=== PATIENT | male | born 1960 | race Caucasian/White ===

== ENCOUNTER 2023-11-20 14:38 | Emergency (ER) | payer MEDICARE, MEDICAID, SELFPAY ==
--- NOTE | ~2023-11-20 | US_ITS ---
EXAMINATION: US ABDOMEN LIMITED CLINICAL INFORMATION: RUQ pain. COMPARISON: None available. TECHNIQUE: Real-time imaging of the right upper quadrant abdominal viscera. FINDINGS: Evaluation is limited due to patient body habitus. PANCREAS: Pancreatic body and head are normal. The distal pancreatic tail is obscured by overlying bowel gas. LIVER: The liver is normal in size. The liver contour is normal. There is diffuse increased liver parenchymal echogenicity, consistent with hepatic steatosis. No focal hepatic lesion. There is no intrahepatic biliary duct dilatation seen. GALLBLADDER: The gallbladder is physiologically distended with a 1.9 x 0.6 x 1.3 cm gallstone. No gallbladder wall thickening or pericholecystic fluid. Intermittent right upper quadrant tenderness without evidence of sonographic Kim sign per windows server support technician documentation. Questionable adenomyomatosis on a single image (series #1 image 38/53). COMMON BILE DUCT: Not visualized. RIGHT KIDNEY: No hydronephrosis. No renal calculi or focal parenchymal lesions. The kidney measures 12.3 cm in maximum dimension. FREE FLUID: None. US/US abdomen limited IMPRESSION: 1. Cholelithiasis without additional sonographic findings of acute cholecystitis. 2. Hepatic steatosis. 3. Common bile duct not visualized.
--- NOTE | 2023-11-20 14:41 | ED.ABDPAIN ---
HPI - Abdominal Pain General Chief Complaint: Abdominal Pain Stated Complaint: Abd pain Time Seen by Provider: 11/20/23 17:28 Source: patient and family Mode of arrival: ambulatory Limitations: no limitations History of Present Illness ED Provider: Jeniffer HPI narrative: Patient is a 63-year-old male presenting to the emergency department with complaint of right flank/right upper quadrant pain which began on Friday and worsened today. 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 Symptoms began after he came home from work on Friday. Denies any nausea, vomiting, diarrhea. Denies fevers. Denies any hematuria, urgency, dysuria. Denies history of prior abdominal surgeries. States he has PCP but has not been to see them in many years. Reports father has history of kidney stones. MD elicited complaint: abdominal pain and flank pain Onset (ago): day(s) Pain Consistency: colicky Location: RUQ and R flank Severity: moderate Quality: sharp Exacerbating factors: movement Relieving factors: rest Associated symptoms: denies other symptoms Related Data Previous Rx's ?Medication ?Instructions ?Recorded cyclobenzaprine 5 mg tablet 5 mg PO TID PRN muscle spasm #10 11/20/23 tabs lidocaine 5 % topical patch 1 patch topical DAILY #15 ea 11/20/23 Allergies Allergy/AdvReac Type Severity Reaction Status Date / Time No Known Allergies Allergy Verified 11/20/23 14:44 Review of Systems Review of Systems As per HPI. Yes all other systems are reviewed and are negative Constitutional: Reports as per HPI [facility] Past Medical History Medical History (Updated 11/20/23 @ 18:12 by Myrna Swift NP) No known health problems Social History Social History Smoked in Last 30 Days: No Use of substances other than those prescribed or required for medical reasons: No Advance Directives: No Advance Directives Information Provided: No Physical Exam ED Vital Signs: Vital Signs - 24 hr 11/20/23 14:42 Temperature 97 F Pulse Rate 71 Respiratory Rate 20 Blood Pressure 145/105 H Pulse Oximetry 98 Oxygen Delivery Method Room Air BMI result Body Mass Index 49.0 Vital signs have been reviewed and appear to be correct. Blood pressure elevated. Heart rate normal. Respiratory rate normal. Temperature normal. Oxygen saturation normal. Const General: cooperative and no acute distress Nutritional Appearance: obese Orientation/consciousness: oriented to person, oriented to place, oriented to time and patient oriented x3 Limitations: no limitations HENMT Head: Yes normocephalic and Yes atraumatic Ears: external ears normal General nose exam: Normal external nose present Face and sinus: Yes face symmetric Mouth: oropharynx normal and moist mucous membranes Throat: Yes uvula midline Eyes Pupils: Equal, round and reactive pupils present Neck Neck: Yes normal visual inspection and Yes supple Resp Effort & Inspection: normal respiratory effort and able to speak in complete sentences Auscultation: clear to auscultation bilaterally Cardio Rate: regular rate Rhythm: regular rhythm Heart sounds: S1 normal heart sound present and S2 normal heart sound present GI Palpation (GI): Soft to palpation, Tenderness to palpation present (GI) in the RUQ (mild); Kim's sign negative, no guarding and No Rebound tenderness present Auscultation: normoactive bowel sounds General: Yes no CVA tenderness Back/Spine/Pelvis Back: no CVA tenderness Thoracic/Lumbar Spine: thoracic and lumbar spine normal to inspection, thoraco-lumbar ROM normal, pain with thoraco-lumbar ROM, paraspinal muscle tenderness on the right in the mid thoracic, No thoracic spinal tenderness and No lumbar spinal tenderness Skin General skin exam: elasticity normal and turgor normal Neuro General: oriented to person, oriented to place, oriented to time, patient oriented x3, moves all extremities, no focal motor deficits and CN's II-XI intact bilaterally Cranial nerves: Yes Equal, round and reactive pupils present Cognition (Neuro): normal cognition Extrem General: Yes full ROM, Yes no pedal edema and Yes no calf tenderness Psych Mental Status: mental status grossly normal Affect: normal affect Thought process: Normal thought process present Course Course Course Narrative: This is a Rapid Medical Exam performed in triage by Elsa Harrison PA-C. Full HPI, ROS and PE to be performed by primary ED provider. 63 year-old M w/ PMHx presenting to the ED c/o right side pain twinges x this morning w/assoc abdominal bloating. Admits sx started on Friday but subsided. denies urinary sx, N/V/C, CP. denies pain worsening w/eating PE: abdomen soft +RUQ ttp Plan: Labs, UA ordered Medical Decision Making Medical Decision Making MDM Narrative: Patient is a 63-year-old male presenting to the emergency department with complaint of right flank/right upper quadrant pain which began on Friday and worsened today. On exam patient is awake, A+Ox3, BP elevated, VS otherwise WNL, afebrile, normal neurological exam without focal deficits, physical exam findings as above. Given reported symptoms and physical exam findings, initial differential includes cholecystitis, choledocolithiasis, muscle strain, UTI/pyelonephitis, renal/ureteral calculi. Labs notable for no leukocytosis, normal renal function, normal Tbili and transaminases. Urinalysis is without blood or evidence of infection. Ultrasound notable for cholelithiasis without evidence of cholecystitis, hepatic steatosis, CBD not visualized. My interpretation is in agreement with the radiologist's interpretation. Patient appears comfortable, is afebrile, no leukocytosis, suspicion for choledocolithiasis very low. Given that pain is primarily to RUQ, feel renal/ureteral calculi unlikely. Will treat for muscle strain with cyclobenzaprine and lidocaine patches. Feel patient is stable for discharge home. Discussed with patient that his blood pressure was elevated today. Instructed patient to schedule and appointment with his PCP to discuss his current symptoms as well as his blood pressure, will also refer to gastroenterology. Return precautions discussed at bedside. Patient verbalized understanding of and agreement with plan. Differential Diagnosis Differential Diagnoses: The differential diagnosis associated with the presentation includes As per [facility] Admission/Observation Consideration of admission/observation: Escalation of care including admission/observation considered Patient would have been admitted to the hospital had their work up had any findings where hospital admission was appropriate and their clinical presentation warranted hospital admission. Lab Data [facility] Lab Attestation statement: I reviewed the patient's lab results. As per [facility] 11/20/23 14:53 11/20/23 14:53 Labs: Lab Results 11/20/23 11/20/23 Range/Units 14:53 15:43 WBC 6.1 (4.8-10.8) X10*3/uL RBC 4.44 L (4.60-5.80) X10*6/uL Hgb 15.4 (14.0-18.0) g/dl Hct 42.6 (42.0-52.0) % MCV 95.9 (80.0-98.0) fL MCH 34.7 H (27.0-33.0) pg MCHC 36.2 H (31.0-36.0) g/dl RDW 13.1 (11.0-16.0) % Plt Count 177 (160-400) X10*3/uL MPV 9.7 (9.4-12.4) fL Immature Gran % (Auto) 0.2 (0.0-0.4) % Neut % (Auto) 55.9 (45-73) % Lymph % (Auto) 35.0 (20-40) % [place] % (Auto) 7.4 (2-11) % Eos % (Auto) 0.8 (0-4) % Baso % (Auto) 0.7 (0-2) % Lymph # (Auto) 2.1 (1.2-4.9) X10*3/uL [place] # (Auto) 0.5 (0.1-1.2) X10*3/uL Eos # (Auto) 0.1 (0.0-0.4) X10*3/uL Baso # (Auto) 0.0 (0.0-0.2) X10*3/uL Abs Immat Gran (auto) 0.01 (0.00-0.03) X10*3/uL Absolute Neuts (auto) 3.4 (2.0-8.3) x10*3/uL Absolute Nucleated RBC 0.000 (0.0-0.012) X10*3/uL Nucleated RBC % (auto) 0.0 (0.0-0.2) /100WBC Sodium 143 (135-145) mmol/L Potassium 3.8 (3.3-5.1) mmol/L Chloride 109 H (96-108) mmol/L Carbon Dioxide 21 L (22-29) mmol/L Anion Gap 17 (12-20) BUN 16 (9-16) mg/dL Creatinine 0.68 (0.5-1.4) mg/dL Estim Creat Clear Calc 171.8 Estimated GFR > 60 Random Glucose 96 (60-115) mg/dL Calcium 9.8 (8.4-10.2) mg/dL Magnesium 2.1 (1.6-2.6) mg/dL Total Bilirubin 1.0 (0.0-1.0) mg/dL Direct Bilirubin 0.3 (0.0-0.5) mg/dL AST 15 (5-37) U/L ALT 12 (0-40) U/L Alkaline Phosphatase 68 (39-117) U/L Total Protein 7.2 (6.5-8.0) g/dL Albumin 4.5 (3.5-5.0) g/dL Lipase 14 (8-78) U/L Urine Color Dark Yellow Urine Appearance Cloudy Urine pH 5.0 (5.0-9.0) Ur Specific [place] >= 1.030 H (1.005-1.025) Urine Protein Trace (Neg-Trace) mg/dL Urine Glucose (UA) Negative (Negative) mg/dL Urine Ketones Trace (Negative) mg/dL Urine Blood Negative (Negative) Urine Nitrite Negative (Negative) Ur Leukocyte Esterase Negative (Negative) Independent Interpretation I performed an independent interpretation of an: Ultrasound Interpretation: Ultrasound notable for cholelithiasis without evidence of cholecystitis, hepatic steatosis, CBD not visualized. Radiology Impression Discussion of test interpretation with radiology: I have reviewed the radiologist's reading. Radiologist Impression: US/US abdomen limited IMPRESSION: 1. Cholelithiasis without additional sonographic findings of acute cholecystitis. 2. Hepatic steatosis. 3. Common bile duct not visualized. Independent Historian Clinical information obtained from an independent historian. History obtained from or confirmed by: Spouse External Record Review External record reviewed: Inpatient record, Office record and Outpatient record Prescription Management I considered prescription management with: Other Discharge Plan Discharge Clinical Impression: Abdominal pain, acute, right upper quadrant, Muscular abdominal pain in right flank Patient Disposition: Home, Self-Care Instructions: Biliary Colic (ED), Muscle Strain (DC), Abdominal Pain (ED), Musculoskeletal Pain (ED) Additional Instructions: You have been evaluated in the emergency department today for abdominal/flank pain. Your evaluation did not show evidence of medical conditions requiring emergent intervention at this time. You are being treated with muscle relaxer as well as a topical lidocaine patch which you can wear for up to 12 hours in a 24 hour period. Do not apply heat directly over the patches. Your blood pressure was elevated in the emergency department today. Please schedule an appointment with your primary care physician to discuss the symptoms which brought you into the emergency department today as well as your blood pressure. Return to the emergency department if you experience worsening or uncontrolled pain, fevers 100.4? F or greater, recurrent vomiting, inability to tolerate food or fluids by mouth, bloody stools or vomit, black or tarry stools, or any other concerning symptoms. Prescriptions: New cyclobenzaprine 5 mg tablet 5 mg PO TID PRN (Reason: muscle spasm) Qty: 10 0RF lidocaine 5 % adhesive patch,medicated 1 patch topical DAILY Qty: 15 0RF Rx Instructions: leave on most painful area for up to 12 hrs Referrals: [facility] [place] [facility] [Provider Group] Print Language: Hungarian
[2023-11-20 14:42] VITALS: BP 145/105; PULSE 71; RESP 20; TEMP 36.1; O2SAT 98; BMI 49.0
[2023-11-20 14:57] LABS: MANUAL DIFF FLAG NO
[2023-11-20 14:58] LABS: Basophils Percent Auto 0.7 % (0-2); Eosinophils Absolute Auto 0.1 X10*3/uL (0.0-0.4); Eosinophils Percent Auto 0.8 % (0-4); Hematocrit 42.6 % (42.0-52.0); Hemoglobin 15.4 g/dl (14.0-18.0); Imm Gran Abs Auto 0.01 X10*3/uL (0.00-0.03); Imm Gran Pct Auto 0.2 % (0.0-0.4); Lymphocytes Absolute Auto 2.1 X10*3/uL (1.2-4.9); Mean Corpuscular HGB Conc 36.2 g/dl (31.0-36.0); Mean Corpuscular Hemoglobin 34.7 pg (27.0-33.0); Mean Corpuscular Volume 95.9 fL (80.0-98.0); Mean Platelet Volume 9.7 fL (9.4-12.4); Monocytes Absolute Auto 0.5 X10*3/uL (0.1-1.2); Monocytes Percent Auto 7.4 % (2-11); Neutrophils Absolute Auto 3.4 x10*3/uL (2.0-8.3); Neutrophils Percent Auto 55.9 % (45-73); Platelet Count 177 X10*3/uL (160-400); Red Blood Count 4.44 X10*6/uL (4.60-5.80); Red Cell Distribution Width 13.1 % (11.0-16.0); White Blood Count 6.1 X10*3/uL (4.8-10.8)
[2023-11-20 15:25] LABS: Alanine Aminotransferase 12 U/L (0-40); Albumin Level 4.5 g/dL (3.5-5.0); Alkaline Phosphatase 68 U/L (39-117); Anion Gap 17 (12-20); Aspartate Amino Transferase 15 U/L (5-37); Bilirubin Direct 0.3 mg/dL (0.0-0.5); Blood Urea Nitrogen 16 mg/dL (9-16); Calcium 9.8 mg/dL (8.4-10.2); Carbon Dioxide 21 mmol/L (22-29); Chloride 109 mmol/L (96-108); Creatinine Clr Calc Pharmacy 171.8; Estimated Glomerular Filt Rate > 60; Glucose Random 96 mg/dL (60-115); Lipase 14 U/L (8-78); Magnesium 2.1 mg/dL (1.6-2.6); Potassium 3.8 mmol/L (3.3-5.1); Sodium 143 mmol/L (135-145); Total Protein 7.2 g/dL (6.5-8.0)
[2023-11-20 15:53] LABS: Appearance Urine Cloudy; Color Urine Dark Yellow; Glucose Urine UA Negative (Negative); Leukocyte Esterase Urine Negative (Negative); Nitrite Urine Negative (Negative); Specific Gravity - Urine >= 1.030 (1.005-1.025); Urine Blood Negative (Negative); Urine Ketones Trace mg/dL (Negative); Urine Protein Trace mg/dL (Neg-Trace)
--- NOTE | 2023-11-20 17:12 | PC.NURSE ---
Pt ambulatory to ED 17, self presents with reports of right flank pain beginning today, denies accompanying symptoms. States I think I may have pulled something . A&Ox3 skin pwd respirations even unlabored. Labs drawn in , US completed. Awaiting MD barger and results, aware of plan of care.
--- OUTSIDE RECORDS SUMMARY | 2023-11-20 17:25 | XMS_ITS | Continuity of Care Document ---
Author Organization [facility] Address [address] [place] [id number]- Care Team Providers Care Production Roustabout Name Role Phone Helen Joaquin MD Primary Care Physician Encounter [facility] [place] Date(s): 06/27/22 - 07/27/22 [facility] [address] [place], [place] [address] Allergies, Adverse Reactions, Alerts No Known Allergies Medications clotrimazole 1% topical cream 1 applicator, Topically, 2 times a day, 0 Refills, Maintenance, 06/30/18 9:23:42 EST Start Date: 06/30/18 Status: Ordered Compression Stockings See Instructions, # 2 pair, Refills 2, Tot. Refills 2, Maintenance, Custom compression pantyhouse 30-40mm/Hg, 09/15/15 12:30:56, Compound Start Date: 09/15/15 Status: Ordered Compression Stockings See Instructions, # 2 each, Refills 2, Tot. Refills 2, Maintenance, Dx: 187.2 surgical, knee -66 mm Hg with elastic bands, 12/28/21 9:42:00 EDT, Compound Start Date: 12/28/21 Status: Ordered Compression Stockings See Instructions, # 2 each, Refills 2, Tot. Refills 2, Maintenance, Custom fit: surgical, calf length 30-40 mm Hg, 12/04/20 11:33:00 EDT, Compound Start Date: 12/04/20 Status: Ordered Compression Stockings See Instructions, # 2 each, Refills 2, Tot. Refills 2, Maintenance, Dx: Venous Insuffuciency with possibel ulcer 187.2 surgical, knee length 30-40 mm Hg with elastic bands, 02/12/22 10:05:00 EDT, Compound Start Date: 02/12/22 Status: Ordered juxtafit compression wraps Thigh high with foot and ankle piece juxtafit compression wraps Thigh high with foot and ankle piece, See Instructions, # 2 each, Refills 0, Tot. Refills 0, Maintenance, Dx: venous insufficiency, s/p GSV ablation, sclerotherapy, contactdermatitis from compression stocking,s obesity, ... Start Date: 10/30/16 Status: Ordered juxtafit compression wraps with foot and ankle piece juxtafit compression wraps with foot and ankle piece, See Instructions, # 2 each, Refills 0, Tot. Refills 0, Maintenance, dx: venous insufficiency, s/p GSV ablation, sclerotherapy, contact dermatitisfrom compression stockings, obesity, 08/15/16 8:16:... Start Date: 08/15/16 Status: Ordered juxtafit compression wraps with foot and ankle piece 30-40mm juxtafit compression wraps with foot and ankle piece 30-40mm, See Instructions, # 2 each, Refills 0, Tot. Refills 0, Maintenance, Dx: venous insufficiency, s/p GSV ablation, sclerotherapy, contact dermatitis from compression stocking,s obesity, ... Start Date: 11/20/16 Status: Ordered Problem List Condition Confirmation Course Effective Dates Status Health St atus Informant Varicose veins Confirmed Active Social History Social History Type Response Smoking Status Current every day ascencion reddy entered on: 09/28/14 Sex Patient Care team information Care Team Personnel Name: Helen Joaquin MD Position: S Primary Care Physician Member Role: PCP Address: Address: [address] [place] [address]- Care Team Related Persons Name: GITA GARCES Address: home [address] [place] [id number]
--- OUTSIDE RECORDS SUMMARY | 2023-11-20 17:25 | XMS_ITS | Continuity of Care Document ---
Author Organization [facility] Address [address] [place] [address]- Care Team Providers Care Chip Frier Name Role Phone Emani LAU, Helen Primary Care Physician [id number] Date(s): 02/11/22 - 04/18/22 [facility] [address] [place] [address]- Attending Physician: Nasim Fuller MD Admitting Physician: Nasim Fuller MD Referring Physician: Helen Joaquin MD Allergies, Adverse Reactions, Alerts No Known Allergies [...] Refills 2, Maintenance, Dx: 187.2 surgical, knee [id number] mm Hg with elastic bands, 12/28/21 9:42:00 [...] Team Personnel Name: Helen Joaquin MD Position: [facility] Primary Care Physician Member Role: PCP Address: Address: [address] [place] [address]- Care Team Related Persons Name: GITA GARCES Address: home [address] [place] [address]
--- OUTSIDE RECORDS SUMMARY | 2023-11-20 17:25 | XMS_ITS | Continuity of Care Document ---
Author Organization [facility] Address [address] [place] [address]- Care Team Providers Care Coal Sampler Name Role Phone Not on Staff, PCP Primary Care Physician Unavail able Encounter [facility] [place] Date(s): 01/02/23 - 02/01/23 [facility] [address] [place], [place] [address] Allergies, Adverse Reactions, Alerts No [...] Refills 2, Maintenance, Dx: 187.2 surgical, knee -60 mm Hg with elastic bands, 12/28/21 9:42:00 [...] bands, 02/12/22 10:05:00 EDT, Compound Start Date: 10/11/22 Status: Ordered juxtafit compression wraps Thigh high [...] Care team information Care Team Personnel Name: Not on Staff, PCP Position: S Physician (General Medicine) Member Role: PCP Care Team Related Persons Name: GITA GARCES Address: home [address] [place] [id number]
--- OUTSIDE RECORDS SUMMARY | 2023-11-20 17:25 | XMS_ITS | Continuity of Care Document ---
Author Organization [facility] Address [address] [place] [address]- Care Team Providers Care Seam Checker Name Role Phone Not on Staff, PCP Primary Care Physician Unavail able [place] [facility] [place] 01/24/23 [facility] [address] [place], [place] [address] Allergies, Adverse Reactions, Alerts No Known Allergies [...] Refills 2, Maintenance, Dx: 187.2 surgical, knee [id number] mm Hg with elastic bands, 12/28/21 9:42:00 [...] Related Persons Name: GITA GARCES Address: home [address] [place] [phone]
--- OUTSIDE RECORDS SUMMARY | 2023-11-20 17:25 | XMS_ITS | Continuity of Care Document ---
Author Organization [facility] Address [address] [place] [address]- Care Team Providers Care Flight Engineer Helicopter Name Role Phone Helen Joaquin MD Primary Care Physician [place] [facility] [id number] Date(s): 03/19/22 - 04/18/22 [facility] [address] [place] [address]- Attending Physician: Stacie Benavides Admitting Physician: AdmtrStacie Referring Physician: Admtr, Ar8 Allergies, Adverse Reactions, Alerts No Known Allergies [...] Refills 2, Maintenance, Dx: 187.2 surgical, knee [id number] mm Hg with elastic bands, 12/28/21 9:42:00 [...] day ascencion reddy entered on: 09/28/14 Sex Note * Martínez Crawley: PERFORM Event Display: Cardiovascular Results Scanned Authored Date: [id number] * Martínez Crawley: PERFORM Event Display: Cardiovascular Results Scanned Authored Date: [id number] Patient Care team information Care Team Personnel Name: Helen Joaquin MD Position: S Primary Care Physician Member Role: PCP Address: Address: [address] [place] [address]- Care Team Related Persons Name: GITA GARCES Address: home [address] [place] [address]
--- OUTSIDE RECORDS SUMMARY | 2023-11-20 17:25 | XMS_ITS | Continuity of Care Document ---
Author Organization [facility] Address [address] [place] [address]- Care Team Providers Care Market Risk Specialist Name Role Phone Helen Joaquin MD Primary Care Physician Encounter [facility] [place] Date(s): 02/18/22 - 03/20/22 [facility] [address] [place], [place] [address] Allergies, Adverse Reactions, Alerts No Known [...] Refills 2, Maintenance, Dx: 187.2 surgical, knee -30 mm Hg with elastic bands, 12/28/21 9:42:00 [...] Care Physician Member Role: PCP Address: Address: [address] [place] [address]- Care Team Related Persons Name: GITA GARCES Address: home [address] [place] [address]
--- OUTSIDE RECORDS SUMMARY | 2023-11-20 17:25 | XMS_ITS | Continuity of Care Document ---
Author Organization [facility] Address [address] [place] [address]- Care Team Providers Care Director Trading Name Role Phone Helen Joaquin MD Primary Care Physician Encounter [facility] [place] Date(s): 02/12/22 - 03/14/22 [facility] [address] [place], [place] [address] Allergies, Adverse Reactions, Alerts No Known Allergies [...] Refills 2, Maintenance, Dx: 187.2 surgical, knee [id number] mm Hg with elastic bands, 12/28/21 9:42:00 [...] Care Physician Member Role: PCP Address: Address: [address] [place] [address]- Care Team Related Persons Name: GITA GARCES Address: home [address] [place] [address]
--- OUTSIDE RECORDS SUMMARY | 2023-11-20 17:25 | XMS_ITS | Continuity of Care Document ---
Author Organization [facility] Address [address] [place] [address]- Care Team Providers Care Partner Cco Name Role Phone Helen Joaquin MD Primary Care Physician Encounter [facility] [place] Date(s): 12/04/20 - 01/03/21 [facility] [address] [place] [address]- Allergies, Adverse Reactions, Alerts Substance Reaction Severity Status NKA Active Medications clotrimazole 1% topical cream 1 applicator, Topically, 2 times a day, 0 Refills, Maintenance, 06/30/18 9:23:42 EST Start Date: 06/30/18 Status: Ordered Compression Stockings See Instructions, # 2 pair, Refills 2, Tot. Refills 2, Maintenance, Custom compression pantyhouse 30-40mm/Hg, 09/15/15 12:30:56, Compound Start Date: 09/15/15 Status: Ordered Compression Stockings See Instructions, # 2 pair, Refills 2, Tot. Refills 2, Maintenance, Dx: 187.2 surgical, knee [id number] mm Hg with elastic bands, 05/22/18 9:22:50 EST, Compound Start Date: 05/22/18 Status: Ordered Compression Stockings See Instructions, # 2 each, Refills 2, Tot. Refills 2, Maintenance, Custom fit: surgical, calf length 30-40 mm Hg, 12/04/20 11:33:00 EDT, Compound Start Date: 12/04/20 Status: Ordered juxtafit compression wraps Thigh high [...] Date: 11/20/16 Status: Ordered Problem List Condition Effective Dates Status Health Status Inform ant Varicose veins(Confirmed) Active Social History Social History Type Response Smoking Status Current every day ascencion reddy entered on: 09/28/14 Sex
--- NOTE | 2023-11-20 17:43 | PC.NURSE ---
Provider to bedside for primary eval.
[2023-11-20 18:32] VITALS: BP 145/105; PULSE 71; RESP 20; TEMP 36.1; O2SAT 98
== END 2023-11-20 18:32 | disposition home or self-care (01) ==
PROVIDERS: Physician Assistant; Emergency Provider Emergency Medicine Emergency Medical Services; PCP Internal Medicine
DX: S39.011A Strain of muscle, fascia and tendon of abdomen, initial encounter (principal); X58.XXXA Exposure to other specified factors, initial encounter; Y93.9 Activity, unspecified; Y92.9 Unspecified place or not applicable; Y99.9 Unspecified external cause status; R10.11 Right upper quadrant pain; K80.20 Calculus of gallbladder without cholecystitis without obstruction; K76.0 Fatty (change of) liver, not elsewhere classified
CPT/HCPCS: 36415; 76705; 80048; 80076; 81003; 83690; 83735; 85025; 99284

== ENCOUNTER 2024-09-03 19:22 | Emergency (ER) | payer MEDICARE, MEDICAID, SELFPAY ==
--- NOTE | ~2024-09-03 | CT_ITS ---
CLINICAL HISTORY: new onset L sided headache CT head without contrast Comparison: None Findings: No intra-axial mass, midline shift, hydrocephalus, or acute hemorrhage. Mild diffuse cerebral volume loss. Mild degree of patchy low-density within the periventricular and subcortical white matter. There is no sinus or mastoid fluid. The orbits are unremarkable. There is no acute fracture. IMPRESSION: 1. No acute intracranial findings. This document has been electronically signed by: Ebenezer Delacruz MD on 09/03/2024 20:45:03
[2024-09-03 19:25] VITALS: BP 149/77; PULSE 85; RESP 18; TEMP 36.3; O2SAT 97; BMI 44.9
--- NOTE | 2024-09-03 19:25 | ED.GENADULT ---
HPI - General Adult General Chief complaint: Headache Stated complaint: head pressure, light headed Time Seen by Provider: 09/03/24 23:22 Source: patient Mode of arrival: ambulatory Limitations: no limitations History of Present Illness ED Provider: HPI narrative: Patient's history of hypertension on losartan and dose increased from 25 to 50 mg last month because of high blood pressure patient is status post cholecystectomy 2 weeks ago comes here as having had pressure-like feeling for last few days also having lightheadedness which has increased especially on standing no nausea no vomiting patient does not drink enough water feels lightheaded especially on standing no chest pain no shortness of breath Related Data Previous Rx's ?Medication ?Instructions ?Recorded cyclobenzaprine 5 mg tablet 5 mg PO TID PRN muscle spasm #10 11/20/23 tabs lidocaine 5 % topical patch 1 patch topical DAILY #15 ea 11/20/23 Allergies Allergy/AdvReac Type Severity Reaction Status Date / Time No Known Allergies Allergy Verified 09/03/24 19:27 Review of Systems Review of Systems: Yes all other systems are reviewed and are negative PMFSH Past Medical History Medical History No known health problems Social History Social History Smoked in Last 30 Days: No Use of substances other than those prescribed or required for medical reasons: No Advance Directives: No Advance Directives Information Provided: Yes Do you have a plan to hurt others: No Plan Physical Exam ED Vital Signs: Vital Signs - 24 hr 09/03/24 19:25 09/03/24 22:57 09/04/24 00:02 Temperature 97.3 F 97.7 F Pulse Rate 85 72 70 Respiratory Rate 18 16 Blood Pressure 149/77 H 146/82 H 128/70 Pulse Oximetry 97 100 Oxygen Delivery Method Room Air Room Air 09/04/24 00:02 09/04/24 00:04 09/04/24 00:14 Temperature 97.6 F Pulse Rate 73 97 62 Respiratory Rate 16 Blood Pressure 116/68 118/62 128/71 Pulse Oximetry 98 Oxygen Delivery Method Room Air 09/04/24 00:31 Temperature 97.6 F Pulse Rate 62 Respiratory Rate 16 Blood Pressure 128/71 Pulse Oximetry 98 Oxygen Delivery Method Room Air BMI result Body Mass Index 44.9 Appearance: Alert. Oriented X3. No acute distress. Obese Eyes: Right eye normal pupils normal range of movement left prosthetic eye ENT: Pharynx normal. Oral Mucosa moist Neck: Normal inspection. Neck supple. CVS: Normal heart rate and rhythm. Pulses normal. Respiratory: No respiratory distress. Equal air entry bilateral, no wheezing/rales/rhonchi Abdomen: Soft and nontender. Bowel sounds are present, no mass palpable, no CVA tenderness Skin: Skin warm and dry. Normal skin color. Normal skin turgor. Extremities: No lower extremity edema. No calf tenderness Neuro: Oriented X 3. No motor deficit. No sensory deficit.No cerebellar signs , cranial nerves II-XII intact Course Course Course Narrative: This is an RME performed by Les Kidd CNP: Additional HPI, ROS, PE not included below will be deferred to primary provider. Patient is a 64-year-old male who presents emergency department for evaluation. He has been experiencing left-sided headache described as a pressure over the past few days without associated vision changes, nausea, vomiting, photophobia, phonophobia. Has not taken any medications for this. He admits to having chronic lightheadedness over the past year typically with position change/bending over, but over the past 3 weeks has states that it is a currently more frequently even while at rest. Plan: Serum labs, CT head Medical Decision Making Medical Decision Making [facility] Narrative: Patient with lightheadedness with normal orthostatics vague headache which is nonspecific CT scan of the head was negative for acute patient's blood pressure is on the lower side advised to decrease the dose of losartan 25 mg for now and follow up with PCP likely the cause of lightheadedness also patient advised to drink plenty of fluids Lab Data [facility] Lab Attestation statement: I reviewed the patient's lab results. 09/03/24 20:08 09/03/24 20:08 Labs: Lab Results 09/03/24 Range/Units 20:08 WBC 8.1 (4.8-10.8) X10*3/uL RBC 3.72 L (4.60-5.80) X10*6/uL Hgb 12.8 L (14.0-18.0) g/dl Hct 35.7 L (42.0-52.0) % MCV 96.0 (80.0-98.0) fL MCH 34.4 H (27.0-33.0) pg MCHC 35.9 (31.0-36.0) g/dl RDW 13.0 (11.0-16.0) % Plt Count 193 (160-400) X10*3/uL MPV 9.4 (9.4-12.4) fL Immature Gran % (Auto) 0.2 (0.0-0.4) % Neut % (Auto) 55.8 (45-73) % Lymph % (Auto) 32.0 (20-40) % Hardeman % (Auto) 6.4 (2-11) % Eos % (Auto) 4.7 H (0-4) % Baso % (Auto) 0.9 (0-2) % Lymph # (Auto) 2.6 (1.2-4.9) X10*3/uL Hardeman # (Auto) 0.5 (0.1-1.2) X10*3/uL Eos # (Auto) 0.4 (0.0-0.4) X10*3/uL Baso # (Auto) 0.1 (0.0-0.2) X10*3/uL Abs Immat Gran (auto) 0.02 (0.00-0.03) X10*3/uL Absolute Neuts (auto) 4.5 (2.0-8.3) x10*3/uL Absolute Nucleated RBC 0.000 (0.0-0.012) X10*3/uL Nucleated RBC % (auto) 0.0 (0.0-0.2) /100WBC Sodium 140 (135-145) mmol/L Potassium 5.1 D (3.3-5.1) mmol/L Chloride 104 (96-108) mmol/L Carbon Dioxide 27 (22-29) mmol/L Anion Gap 14 (12-20) BUN 15 (9-16) mg/dL Creatinine 0.72 (0.5-1.4) mg/dL Estim Creat Clear Calc 152.1 Estimated GFR > 60 Random Glucose 99 (60-115) mg/dL Calcium 9.1 D (8.4-10.2) mg/dL Total Bilirubin 0.6 (0.0-1.0) mg/dL AST 17 (5-37) U/L ALT 9 (0-40) U/L Alkaline Phosphatase 74 (39-117) U/L Total Protein 6.5 (6.5-8.0) g/dL Albumin 4.0 (3.5-5.0) g/dL Influenza Type A (PCR) NEGATIVE (Negative) Influenza Type B (PCR) NEGATIVE (Negative) RSV RNA Qual (PCR) NEGATIVE (Negative) SARS-CoV-2 RNA (RT-PCR) NEGATIVE (Negative) Independent Interpretation I performed an independent interpretation of an: CT Scan Interpretation: NAD Radiology Impression Discussion of test interpretation with radiology: I have reviewed the radiologist's reading. Discharge Plan Discharge Clinical Impression: Headache Patient Disposition: Home, Self-Care Instructions: Lightheadedness (ED), General Headache (ED) Additional Instructions: Your blood pressure today was 118/62 decrease the dose of losartan to 25 mg daily unless blood pressure is higher than 140/100 Drink plenty of fluids Check blood pressure twice a day before taking the medicine and before going to the bed and follow up with your PCP Prescriptions: No Action cyclobenzaprine 5 mg tablet 5 mg PO TID PRN (Reason: muscle spasm) Qty: 10 0RF lidocaine 5 % adhesive patch,medicated 1 patch topical DAILY Qty: 15 0RF Rx Instructions: leave on most painful area for up to 12 hrs Interventions: ED Discharge Assessment Last Done: 09/04/24 00:31 Discharge Date/Time: 09/04/24 00:31 Print Language: Korean
[2024-09-03 20:13] LABS: MANUAL DIFF FLAG NO
[2024-09-03 20:14] LABS: Basophils Absolute Auto 0.1 X10*3/uL (0.0-0.2); Basophils Percent Auto 0.9 % (0-2); Eosinophils Absolute Auto 0.4 X10*3/uL (0.0-0.4); Eosinophils Percent Auto 4.7 % (0-4); Hematocrit 35.7 % (42.0-52.0); Hemoglobin 12.8 g/dl (14.0-18.0); Imm Gran Abs Auto 0.02 X10*3/uL (0.00-0.03); Imm Gran Pct Auto 0.2 % (0.0-0.4); Lymphocytes Absolute Auto 2.6 X10*3/uL (1.2-4.9); Mean Corpuscular HGB Conc 35.9 g/dl (31.0-36.0); Mean Corpuscular Hemoglobin 34.4 pg (27.0-33.0); Mean Platelet Volume 9.4 fL (9.4-12.4); Monocytes Absolute Auto 0.5 X10*3/uL (0.1-1.2); Monocytes Percent Auto 6.4 % (2-11); Neutrophils Absolute Auto 4.5 x10*3/uL (2.0-8.3); Neutrophils Percent Auto 55.8 % (45-73); Platelet Count 193 X10*3/uL (160-400); Red Blood Count 3.72 X10*6/uL (4.60-5.80); White Blood Count 8.1 X10*3/uL (4.8-10.8)
[2024-09-03 20:31] LABS: Alanine Aminotransferase 9 U/L (0-40); Alkaline Phosphatase 74 U/L (39-117); Anion Gap 14 (12-20); Aspartate Amino Transferase 17 U/L (5-37); Bilirubin Total 0.6 mg/dL (0.0-1.0); Blood Urea Nitrogen 15 mg/dL (9-16); Calcium 9.1 mg/dL (8.4-10.2); Carbon Dioxide 27 mmol/L (22-29); Chloride 104 mmol/L (96-108); Creatinine Clr Calc Pharmacy 152.1; Estimated Glomerular Filt Rate > 60; Glucose Random 99 mg/dL (60-115); Potassium 5.1 mmol/L (3.3-5.1); Sodium 140 mmol/L (135-145); Total Protein 6.5 g/dL (6.5-8.0)
[2024-09-03 20:50] LABS: Influenza A PCR NEGATIVE (Negative); Influenza B PCR NEGATIVE (Negative); Resp Syncy Virus RNA Qual PCR NEGATIVE (Negative); SARS COV2 PCR INHOUSE NEGATIVE (Negative)
[2024-09-03 22:57] VITALS: BP 146/82; PULSE 72; RESP 16; TEMP 36.5; O2SAT 100
--- OUTSIDE RECORDS SUMMARY | 2024-09-03 23:31 | XMS_ITS | Encounter Summary ---
Author Organization [facility] Address [address] [place] [address] Care Team Providers Care Director Career Name Role Phone Helen Joaquin MD Primary Care Provider Deb Cartagena MD Primary Care Provider [phone] Encounter Details Date Type Department Care Team Description 02/29/2016 Release of Information Medical Records [address] [place] [id number] Abstract, Provider Social History Tobacco Use Types Packs/Day Years Used Date Smoking Tobacco: Every Day Cigarettes 0.5 Smokeless Tobacco: Never Alcohol Use Standard Drinks/Week Comments Yes 0 (1 standard drink = 0.6 oz pur e alcohol) 1-2 BEERS/YEAR Sex Assigned at Date Recorded Not on file documented as of this encounter Plan of Treatment Not on file documented as of this encounter Visit Diagnoses Not on filedocumented in this encounter Care Teams Director Career Relationship Specialty Start Date End Date Helen Joaquin MD PCP - General Internal Medicine 02/09/15 11/20/23 Deb Bell MD [address] [place] [address] PCP - General Internal Medicine 11/21/23 documented as of this encounter
--- OUTSIDE RECORDS SUMMARY | 2024-09-03 23:31 | XMS_ITS | Encounter Summary ---
Author Organization [facility] Address [address] [place] [address] Care Team Providers Care Supervisor Of Research Name Role Phone Guy Hinkle MD Primary Care Provider [phone] [facility], Pcp Primary Care Provider Deep Rose MD Primary Care Provider Irene Uzair Guardado MD Primary Care Provider Unavail Helen Mcginnis MD Primary Care Provider Deb Cartagena MD Primary Care Provider [phone] Reason for Visit * Reason Comments TEST RESULTS Encounter Details Date Type Department Care Team Description 04/04/2000 Telephone Medical [address] [place] [id number] Gyu Hinkle MD [address] [place] [address] TEST RESULTS Social History Tobacco Use Types Packs/Day Years Used Date Smoking Tobacco: Never Assessed Sex Assigned at Date Recorded Not on file documented as of this encounter Miscellaneous Notes * Telephone Encounter - 04/04/2000 10:15 AM ESTCALL RECEIVED. Contact: [id number] [phone] TEST RESULTS TYPE OF TEST:upper GI DATE:04.02.00 FACILITY:[facility] IS THE DOCTOR HERE TODAY?: YES CAN THE MESSAGE WAIT UNTIL THE DOCTOR RETURNS?: NO PATIENT WOULD LIKE A CALL BACK TODAY/THANKS documented in this encounter Plan of Treatment Not on file documented as of this encounter Visit Diagnoses Not on filedocumented in this encounter Care Teams Supervisor Of Research Relationship Specialty Start Date End Date Guy Hinkle MD [address] [place] [address] PCP - General 05/05/1991 11/19/11 [facility], [address] [address] PCP - General Internal Medicine 11/20/11 12/09/11 Deep Ross MD [address] [place], [place] [id number] PCP - General Internal Medicine 12/10/11 05/04/14 Uzair Guerrero MD [address] [place] [address] PCP - General Internal Medicine 07/04/14 02/08/15 Helen Joaquin MD [address] [place] [id number] PCP - General Internal Medicine 02/09/15 11/20/23 Deb Bell MD [address] [place], [place] [id number] PCP - General Internal Medicine 11/21/23 documented as of this encounter
--- OUTSIDE RECORDS SUMMARY | 2024-09-03 23:31 | XMS_ITS | Clinical Summary ---
Author Organization [address] [place] [address] [place] [phone] Phone Care Team Providers Care Junior Qa Analyst Name Role Phone Deb Bell MD Primary Care Provider [phone] Allergies No known active allergies Medications losartan (COZAAR) 50 mg tablet Take 1 tablet (50 mg total) by mouth 1 (one) time each day. 90 tablet 1 08/06/19 25 Active acetaminophen (TYLENOL) 500 mg tablet Take 2 tablets (1,000 mg total) by mouth every 6 (six) hours if needed for mild pain. 60 tablet 08/21/19 25 Active oxyCODONE (ROXICODONE) 5 mg immediate release tablet Take 1 tablet (5 mg total) by mouth every 6 (six) hours if needed for severe pain. Max Daily Amount: 20 mg 10 tablet 08/21/19 25 Active tolnaftate (TINACTIN) 1 % powder Apply 1 applicator topically. 02/03/20 24 025 Discontinued miconazole nitrate 2 % aerosol,spray Apply 1 applicator topically 1 (one) time each day. 02/03/20 24 025 Discontinued lidocaine-ment hol (Elemar) 5-6 % kit Apply topically. 025 Discontinued semaglutide (Wegovy) 0.25 mg/0.5 mL injection penIndications :Class 3 severe obesity due to excess calories with serious comorbidity and body mass index (BMI) of 45.0 to 49.9 in adult (CMS/HCC V24, CMS/HCC V28) Inject 0.25 mg under the skin every 7 (seven) days. 4 mL 1 04/29/20 24 025 Discontinued losartan (COZAAR) 25 mg tablet Take 2 tablets (50 mg total) by mouth 1 (one) time each day. 180 tablet 07/24/19 025 Discontinued(Do se adjustment) losartan (COZAAR) 50 mg tablet Take 1 tablet (50 mg total) by mouth 1 (one) time each day. 025 Discontinued(Re order) Active Problems Problem Noted Date Diagnosed Date Porcelain gallbladder 07/20/2024 Varicose veins of lower extremities with inflamm ation 03/18/2024 Biliary colic 12/12/2023 Calculus of gallbladder with out cholecystitis without obstruction 12/12/2023 Fatty liver 12/12/2023 Primary hypertension 12/12/2023 Smoking 10/21/2014 Lymphedema 11/26/2007 Trigger finger 11/16/2007 Varicose veins of lower extremities with inflamm ation 09/28/2005 Morbid obesity (CMS/HCC V24, CMS/HCC V28) 2005 Encounters Date Type Department Care Team Description 09/02/2024 2:30 PM EDT Office Visit Vascular Surgery - [place] [address] [place] [address] Erma Miller PA Lymphedema (Primary Dx); Varicose veins of leg with swelling, bilateral 08/20/2024 1:00 PM EDT - 08/20/2024 3:[address] [facility] [place] [address] [place] [phone] Andrzej Booker, DO LAPAROSCOPIC CHOLECYSTECTOMY [[id number] (CPT??)] 08/20/2024 12:15 PM EDT Anesthesia Event [facility] [place] [address] [place] [phone] Hudson Case MD 08/20/2024 11:17 AM EDT - 08/20/2024 3:38 PM EDT Hospital Encounter [facility] [place] [address] [place] [phone] Andrzej Booker, DO Porcelain gallbladder Discharge Disposition: Home or Self Care 07/22/2024 10:48 AM EDT - 07/22/2024 11:59 PM EDT Hospital Encounter CT Scan - [place] [address] [place] [address] Right flank pain Discharge Disposition: Home or Self Care 07/20/2024 3:45 PM EDT Office Visit General Surgery - [place] [address] [place] [phone] Andrzej Booker, DO Right flank pain (Primary Dx); Porcelain gallbladder 06/17/2024 2:45 PM EST Ancillary Procedure [facility] [address] [place] [address] Varicose veins of leg with swelling, bilateral from Last 3 Months Immunizations Name Administration Dates Next Due Tdap Tetanus diptheria acell ular pertussis (Boostrix; Adacel) 7yo and older 10/12/2008 Surgical History Surgery Date Site/Laterality Comments OTHER SURGICAL HISTORY PROCEDURE: UT STRABISMUS PREVIOUS EYE X INVOLVE EO MUSC COLONOSCOPY W/ BIOPSIES 09/04/2001 PROCEDURE: UT COLONOSCOPY W/BIOPSY SINGLE/MULTIPLE; COMMENT: 5 mm hyperplastic polyp COLONOSCOPY W/ BIOPSIES 01/17/2012 PROCEDURE: UT COLONOSCOPY W/BIOPSY SINGLE/MULTIPLE; COMMENT: 5 mm polyp at 25 cm: hyperplastic. COLONOSCOPY EYE SURGERY Medical History Medical History Date Comments Varicose veins of lower extr emities with inflammation 09/28/2005 DX:Varicose veins of lower extremities with inflammation Smoking 10/21/2014 DX:Smoking Hypertension Varicose veins of both lower extremities, unspecified whether complicated Family History Relation Name Status Comments Brother Alive Father Alive htn Mother Alive valvular heart diseace/pacemaker Social History Tobacco Use Types Packs/Day Years Used Date Smoking Tobacco: Former Cigarettes 0.5 4.3 S tarted: 2020 Smokeless Tobacco: Never Tobacco Cessation:Counseling Given: Not Answered Alcohol Use Standard Drinks/Week Comments Not Currently 0 (1 standard drink = 0.6 oz pur e alcohol) Interpersonal Safety Answer Date Record ed Physical Abuse 08/20/2024 Verbal Abuse 08/20/2024 Sex and Gender Information Value Date Recorded Sex Assigned at Male 08/13/2024 9:27 AM EDT Legal Sex Male 11:34 PM EST Gender Identity Male 08/13/2024 9:27 AM EDT Sexual Orientation Straight 08/13/2024 9: 27 AM EDT Obstetrics History Last Filed Vital Signs Vital Sign Reading Time Taken Comments Blood Pressure 125/82 09/02/2024 2:17 PM EDT Pulse 82 09/02/2024 2:17 PM EDT Temperature 36.7 ??C (98.1 ??F) 08/20/2024 2:22 PM ED T Respiratory Rate 14 08/20/2024 2:22 PM EDT Oxygen Saturation 100% 08/20/2024 2:22 PM EDT Inhaled Oxygen Concentration - - Weight 150 kg (331 lb) 09/02/2024 2:17 PM EDT Height 182.9 cm (6') 09/02/2024 2:17 PM EDT Body Mass Index 44.89 09/02/2024 2:17 PM EDT Plan of Treatment Upcoming Encounters Date Type Department Care Team (Late st Contact Info) Description 09/06/2024 3:15 PM EDT Office Visit General Surgery [facility] [address] [facility] [address] [place] [phone] Andrzej Booker DO 175 [facility] [address] [place] [address] 09/07/2024 11:00 AM EDT Office Visit Adult Medicine [facility] [place] [address] [place] [address] Deb Bell MD [address] [place] [address] 09/22/2024 1:15 PM EDT Office Visit Orthopedic Surgery [facility] 250 [address] [facility] [address] [place] [phone] Milad Vasquez DPM [address] [address] 03/11/2025 3:00 PM EST Office Visit Vascular Surgery [facility] 300 [facility] [address] [place] [phone] Erma Miller PA [address] [address] Health Maintenance Due Date Last Done Comments Hepatitis A Vaccines (1 of 2 - Risk 2-dose series) 1977 Pneumococcal Vaccine: 50+ Years (1 of 2 - PCV) 1977 Zoster Vaccines (1 of 2) 2008 Hepatitis B Vaccines (1 of 3 - Risk 3-dose series) 2018 RSV Immunization Adult Patients (1 - Risk 60-74 years 1-dose series) 2018 DTaP,Tdap,and Td Vaccines (2 - Td or Tdap) 10/12/2018 10/12/2008 Abdominal Aortic Aneurysm (AAA) Screen 02/13/2023 Colorectal Cancer Screening: Colonoscopy 02/13/2023 01/17/2012 Medicare Annual Wellness Visit 02/13/2023 Social Influencers of Health Screening 02/13/2023 COVID-19 Vaccine (3 - 2023-2 5 season) 2024 09/09/2020, 08/19/2020 Depression Screening 12/11/2024 12/12/2023 Influenza Vaccine (Season Ended) 2025 Hypertension/CHF/CAD Annual BMP Blood Test 07/21/2025 07/21/2024, 09/08/2014 Falls Risk Assessment 08/20/2025 08/20/2024 , 12/12/2023 Cholesterol Screening (Lipid Panel) 12/22/2028 12/23/2023, 12/23/2023 Hepatitis C Screening Completed 12/23/2023 HIB Vaccines Aged Out No longer eligi ble based on patient's age to complete this topic HPV Vaccines Aged Out No longer eligi ble based on patient's age to complete this topic IPV Vaccines Aged Out No longer eligi ble based on patient's age to complete this topic MMR Vaccines Aged Out No longer eligi ble based on patient's age to complete this topic Meningococcal ACWY Vaccine Aged Out N o longer eligible based on patient's age to complete this topic Meningococcal B Vaccine Aged Out No l onger eligible based on patient's age to complete this topic RSV Immunization Patients Under 20 months Aged Out No longer eligible b ased on patient's age to complete this topic Varicella Vaccines Aged Out No longer eligible based on patient's age to complete this topic Procedures Procedure Name Priority Date/Time Associated Diagnosis Comments OXYGEN THERAPY, ADULT Routine 08/20/2024 1:24 PM EDT OXYGEN THERAPY, ADULT Routine 08/20/2024 1:24 PM EDT TISSUE EXAM Routine 08/20/2024 1:00 PM EDT Porcelain gallbladder TH AN ENDOTRACHEAL(NO CHARGE) Routine 08/20/2024 12:37 PM EDT UT LAPAROSCOPY SURGICAL CHOLECYSTECTOMY 08/20/2024 12:15 PM EDT Porcelain gallbladder Chronic cholecystitis Special Needs Laparoscopic Cholecystectomy ? Open -- Asking 120 minutes. ECG 12-LEAD Routine 08/13/2024 9:47 AM EDT Porcelain gallbladder CT ABDOMEN PELVIS W CONTRAST Routine 07/22/2024 11:13 AM EDT Right flank pain BASIC METABOLIC PANEL Routine 07/21/2024 8:48 AM EDT Right flank pain VAS US DUPLEX LOWER EXT VENOUS INSUFFICIENCY BILATERAL Routine 06/17/2024 3:24 PM EST Varicose veins of leg with swelling, bilateral HEPATITIS C SCREENING Routine 12/23/2023 LIPID PANEL Routine 12/23/2023 DEPRESSION SCREENING Routine 12/12/2023 FALLS RISK ASSESSMENT Routine 12/12/2023 from Last 3 Months or Most Recently Relevant to Health Maintenance Results * Tissue exam (08/20/2024 1:00 PM EDT) Final Diagnosis Gallbladder, cholecystectomy: - Chronic cholecystitis with extensive epithelial denudation, mural fibrosis, degenerative changes and focal calcification. - Cholelithiasis. 08/23/2024 12:04 PM EDT [facility] Gross Description A. Gallbladder, : Labeled gallbladder . Received in formalin is a 7.2 x 2.8 x 2.6 cm previously disrupted gallbladder, including attached cystic duct with a diameter of 0.2 cm at the margin. No periductal lymph node is identified. The lumen contains scant yellow-brown bile. There is a 2.2 cm yellow-brown cholelith lodged within the neck. The mucosa is pink-white to brown and denuded. The mucosa in the neck is adherent to the cholelith 0.2. The wall (muscularis) thickness measures up to 0.2 cm. The wall of the fundus is moderately calcified. The serosa is inked amberly, and the adventitial margin is inked green. Thermodynamics Teacher sections are submitted as follows: 1, gallbladder (body and neck), duct margin (inked red), and cross section adjacent to duct margin (inked blue), five pieces. 2-5, additional full-thickness sections (cassettes 3-5 following decalcification), three pieces each ALINE 08/23/2024 12:04 PM EDT [facility] Disclaimer Unless otherwise specified, all tissue is 10% NB formalin fixed and paraffin embedded. 08/23/2024 12:04 PM EDT [facility] Tissue Gallbladder structure / Unknown 08/20/2024 1:00 PM EDT 08/20/2024 1:50 PM EDT us Andrzej Booker DO LAB PATHOLOGY ORDERABLES Final Result [facility] [address] [place] [address], * TH AN ENDOTRACHEAL(NO CHARGE) (08/20/2024 12:37 PM EDT) Narrative Hudson Case MD - 08/20/2024 12:37 PM EDT Hudson Case MD ? 08/20/2024 12:39 PM General Information and Staff Patient location during procedure: OR Anesthesiologist: Hudson Case MD Performed: anesthesiologist Performed by: Hudson Case MD Authorized by: Hudson Case MD ?? Intubation Airway not difficult Urgency: elective Final Airway Details Successful airway: ETT Cuffed: yes Successful intubation technique: direct laryngoscopy Endotracheal tube insertion site: oral Blade: Zeferino Blade size: #4 ETT size (mm): 7.0 Cormack-Lehane Classification: grade I - full view of glottis Placement verified by: chest auscultation and capnometry Cuff volume (mL): 10 Measured from: lips ETT to lips (cm): 24 Number of attempts at approach: 1 Ventilation between attempts: none Number of other approaches attempted: 0Final airway type: endotracheal airway Indications and Patient Condition Indications for airway management: anesthesia Spontaneous ventilation: present Sedation level: Yes Preoxygenated: yes Soft Tissue Damage: No Dentition Unchanged: Yes Patient position: neutral Mask difficulty assessment: 0 - not attempted Start Time: 08/20/2024 12:21 PMStop Time: 08/20/2024 12:21 PM us Hudson Case MD ANESTHESIA ORDERABLES Final Re sult * ECG 12 lead (08/13/2024 9:47 AM EDT) Ventricular Rate ECG 72 BPM GEMUSE Atrial Rate 72 BPM GEMUSE P-R Interval 148 ms GEMUSE QRS Duration 106 ms GEMUSE Q-T Interval 374 ms GEMUSE QTc 409 ms GEMUSE P Wave Butler 46 degrees GEMUSE R Butler 6 degrees GEMUSE T Butler 65 degrees GEMUSE ECG Interpretation Normal sinus rhythm Incomplete right bundle branch block Borderline ECG No previous ECGs available Confirmed by DEL WILLIAM ([id number]) on 08/14/2024 10:20:39 AM GEMUSE 08/13/2024 9:47 AM EDT 08/14/2024 10:20 AM EDT us Andrzej Booker DO ECG ORDERABLES Final Result GEMUSE * CT Abdomen Pelvis w Contrast (07/22/2024 11:13 AM EDT) Anatomical Region Laterality Modality Body Computed Tomogra phy 07/22/2024 1:55 PM EDT Impressions 07/22/2024 2:06 PM EDT Impression: 1. ??No acute intra-abdominal or intrapelvic process 2. Porcelain gallbladder. ??Recommend consultation with gastrointestinal or surgery for further evaluation -------- FINAL REPORT -------- Dictated By: Sagar Kohler Dictated Date: 07/22/2024 13:55 ET Assigned Physician: Sagar Kohler Reviewed and Electronically Signed By: Sagar Kohler Signed Date: 07/22/2024 14:06 ET Workstation ID: [id number] Transcribed By: Self Edit Transcribed Date: 07/22/2024 13:56 ET Narrative 07/22/2024 2:[address] abdomen and pelvis with intravenous contrast HISTORY:Right flank pain COMPARISON:CT abdomen and pelvis from 11/30/2013 Technique: Multiple contiguous axial images of the abdomen and pelvis are obtained with the administration of 100 cc of ISOVUE 370 intravenous contrast. Images were reformatted in coronal and sagittal planes. ??Radiation dose is26.93 mGy Findings: Mediastinum: The apex of the heart is within normal limits for size, no pericardial effusion. Lung bases: Lung bases are clear. Upper Abdomen: The liver, pancreas and spleen are within normal limits. ??Calcification along the gallbladder wall. : A 1.0 cm right adrenal nodule is present stable from 2013. ??The left adrenal gland is within normal limits. ??The kidneys are unremarkable. ??Bladder is decompressed. Lower GI: The bowel is without obstruction, or inflammation. There is no free air or free fluid. The appendix and terminal ileum are within normal limits. ??Subcentimeter lymph nodes within the abdomen and pelvis. Vascular: The abdominal aorta is within normal limits. MSK: Moderate degenerative changes of the bilateral hips. ??Fat-containing bilateral inguinal hernias. Procedure Note Sagar Kohler MD - 07/22/2024 CT abdomen and pelvis with intravenous contrast HISTORY:Right flank pain COMPARISON:CT abdomen and pelvis from 11/30/2013 Technique: Multiple contiguous axial images of the abdomen and pelvis areobtained with the administration of 100 cc of ISOVUE 370 intravenouscontrast. Images were reformatted in coronal and sagittal planes.Radiation dose is26.93 mGy Findings: Mediastinum: The apex of the heart is within normal limits for size, nopericardial effusion. Lung bases: Lung bases are clear. Upper Abdomen: The liver, pancreas and spleen are within normal limits.Calcification along the gallbladder wall. : A 1.0 cm right adrenal nodule is present stable from 2014. The leftadrenal gland is within normal limits. The kidneys are unremarkable.Bladder is decompressed. Lower GI: The bowel is without obstruction, or inflammation. There is nofree air or free fluid. The appendix and terminal ileum are within normallimits. Subcentimeter lymph nodes within the abdomen and pelvis. Vascular: The abdominal aorta is within normal limits. MSK: Moderate degenerative changes of the bilateral hips. Fat- containingbilateral inguinal hernias. IMPRESSION: Impression: 1. No acute intra-abdominal or intrapelvic process 2. Porcelain gallbladder. Recommend consultation with gastrointestinal orsurgery for further evaluation -------- FINAL REPORT -------- Dictated By: Sagar Kohler Dictated Date: 07/22/2024 13:55 ET Assigned Physician: Sagar Kohler Reviewed and Electronically Signed By: Sagar Kohler Signed Date: 07/22/2024 14:06 ET Workstation ID: [id number] Transcribed By: Self Edit Transcribed Date: 07/22/2024 13:56 ET Andrzej Booker DO IMG CT PROCEDURES Final Result * (ABNORMAL) Basic metabolic panel (07/21/2024 8:48 AM EDT) Sodium 135 133 - 145 mmol/L LAB CHEMISTRY METHOD 07/21/2024 10:59 AM EDT [facility] Potassium 4.8 3.5 - 5.5 mmol/L LAB CHEMISTRY METHOD 07/21/2024 10:59 AM EDT [facility] Chloride 101 96 - 110 mmol/L LAB CHEMISTRY METHOD 07/21/2024 10:59 AM EDT [facility] CO2 29 21 - 32 mmol/L LAB CHEMISTRY METHOD [facility]24 [facility] Anion Gap 5 3 - 11 LAB CHEMISTRY METHOD 07/21/2024 10:59 AM [facility] Glucose 119(H) 70 - 100 mg/dL LAB CHEMISTRY METHOD 07/21/2024 10:59 AM [facility] BUN 16 5 - 25 mg/dL LAB CHEMISTRY METHOD 07/21/2024 10:59 AM [facility] Creatinine 0.85 0.70 - 1.30 mg/dL LAB CHEMISTRY METHOD 07/21/2024 10:59 AM [facility] eGFR 96 >=60 mL/min/1. 73m2 LAB CHEMISTRY METHOD 07/21/2024 10:59 AM [facility] Comment:Calculation based on the??Chronic Kidney Disease Epidemiology Collaboration (CKD-EPI) equation refit??without adjustment for race. BUN/Creatinine Ratio 18.8 LAB CHEMISTRY METHOD 07/21/2024 10:59 AM [facility] Calcium 9.7 8.5 - 10.5 mg/dL LAB CHEMISTRY METHOD 07/21/2024 10:59 AM [facility] Blood Venous blood specimen / Unknown Venipuncture / Unknown 07/21/2024 8:48 AM EDT 07/21/2024 8:48 AM EDT us Andrzej Booker DO LAB BLOOD ORDERABLES Final Res ult [facility] [address] [place] [address], * Vascular US duplex lower extremity venous insufficiency bilateral (06/17/2024 3:24 PM EST) Left GSDC emmanuel 0.37 cm CV VAS LAB Left GSPC emmanuel 0.38 cm CV VAS LAB Left GSPT emmanuel 0.35 cm CV VAS LAB Left SFJ Diameter 0.95 cm CV VAS LAB Right GSDC emmanuel 0.39 cm CV VAS LAB Right GSPC emmanuel 0.40 cm CV VAS LAB Right GSPT emmanuel 0.25 cm CV VAS LAB Right pop reflux 2,811 ms CV VAS LAB Right SFJ Diameter 0.76 cm CV VAS LAB Right GSPC reflux 3,117 ms CV VAS LAB Left SFJ Reflux Time 2,578 ms CV VAS LAB Anatomical Region Laterality Modality Vascular, Abdomen Ultrasound Narrative 06/17/2024 6:46 PM EST Right: 1. ??The right lower extremity veins are compressible and there is no evidence of DVT in the right lower extremity venous system. 2. ??Previous history of venous procedure on both legs, most likely ablation of the GSV done partially, could not visualize GSV from mid thigh to right knee level. ??The GSV has clinically significant reflux of 3.1 seconds at the right upper calf. 3. The SSV could not be visualized. 4. There is refluxing varcose vein branch from right GSV noted. ??The proximal thigh branch has clinically significant reflux of >2.7 seconds, mid thigh branch which is very tortuous has clinically significant reflux of > 3.23 seconds, another mid thigh branch has clinically significant reflux of > 3.06 seconds, right upper calf branch has clinically significant reflux of > 3.29 seconds and right upper calf medial branch has clinically significant reflux of > 3.28 seconds. Left: 1. ??The left lower extremity veins are compressible and there is no evidence of DVT in the left lower extremity venous system. 2. The GSV is only partially visible, most likely previous ablation of the GSV from the mid thigh to knee level. ??The GSV has clinically significant reflux of 2.5 seconds at the left saphenofemoral femoral junction. 3. The SSV could not be visualized. 4. There is refluxing varcose vein branch from left GSV with clinically significant reflux of > 2.7 seconds at the anterior thigh, clinically significant reflux of > 3.01 seconds at the mid thigh and clinically significant reflux of 3.1 seconds > at the upper calf. Right Lower Venous The common femoral, femoral, popliteal, greater and lesser saphenous veins were interrogated, demonstrating normal compressibility. Doppler signals were phasic and spontaneous. Right Venous Insufficiency Duplex The exam was performed with the patient in reverse Trendelenburg. Left Lower Venous The common femoral, femoral, popliteal, greater and lesser saphenous veins were interrogated, demonstrating normal compressibility. Doppler signals were phasic and spontaneous. Left Venous Insufficiency Duplex The exam was performed with the patient in reverse trendelenburg. [employer] Details A rose scale, color and doppler analysis ultrasound was performed. During the study longitudinal and transverse views were obtained. Pulsed wave doppler was performed. Study was technically difficult due to: body habitus. Result [facility] Erma REESE CV VASCULAR PROCEDURES Final R esult * Hepatitis C Screening (12/23/2023) [facility] Hepatitis C Screening abstracted Result [facility] Provider HEALTH MAINTENANCE Final Result * (ABNORMAL) Lipid panel (12/23/2023) [facility] LDL/HDL Ratio 3 0 - 4 Triglycerides 101 0 - 150 mg/dL Cholesterol 177 0 - 200 mg/dL HDL 53 >=40 mg/dL LDL Cholesterol 104(A) 0 - 100 mg/dL Blood Venous blood specimen / Unknown Result [facility] Provider LAB BLOOD ORDERABLES Tiffanie l Result * Falls Risk Assessment (12/12/2023) [facility] Falls Risk Assessment abstracted Result [facility] Provider HEALTH MAINTENANCE Final Result * Depression Screening (12/12/2023) [facility] Depression Screening abstracted Result [facility] HEALTH MAINTENANCE Final Result from Last 3 Months or Most Recently Relevant to Health Maintenance Insurance [employer] [place] [employer] Advance Directives * Full Code - Default (Latest Code Status on File) Date Activated Date Inactivated Comments 08/20/2024 11:24 AM 08/20/2024 5:39 PM This is ord er is used when code status has not been discussed with the patient, or code status is otherwise unknown/unconfirmed To update the patient's code status, place a code status order. Do not modify or discontinue any currently active code status orders. Care Teams Junior Qa Analyst Relationship Specialty Start Date End Date Deb Bell MD [address] [place] [address] [place] [address] PCP - General 11/21/23
--- OUTSIDE RECORDS SUMMARY | 2024-09-03 23:31 | XMS_ITS | Encounter Summary ---
Author Organization [facility] Address [address] [place] [address] Care Team Providers Care Glass Furnace Tender Name Role Phone Helen Joaquin MD Primary Care Provider Deb Cartagena MD Primary Care Provider [phone] Encounter Details Date Type Department Care Team Description 03/31/2015 Dial Brusher Report Medical Records [address] [place] [address] Alireza Mcdonald Social History Tobacco Use Types Packs/Day Years [...] on filedocumented in this encounter Care Teams Glass Furnace Tender Relationship Specialty Start Date End Date Helen Joaquin MD PCP - General Internal Medicine 02/09/15 11/20/23 Deb Bell MD [address] [place] [address] PCP - General Internal Medicine 11/21/23 documented as of this encounter
--- OUTSIDE RECORDS SUMMARY | 2024-09-03 23:31 | XMS_ITS | Encounter Summary ---
Author Organization [facility] Address [address] [place] [address] Care Team Providers Care Center Director Name Role Phone Helen Joaquin MD Primary Care Provider Deb Cartagena MD Primary Care Provider [phone] Encounter Details Date Type Department Care Team Description 08/01/2016 Battery Filler Report Medical Records [address] [place] [id number] Teagan Dejesus Social History Tobacco Use Types Packs/Day Years [...] on filedocumented in this encounter Care Teams Center Director Relationship Specialty Start Date End Date Helen Joaquin MD PCP - General Internal Medicine 02/09/15 11/20/23 Deb Bell MD [address] [place] [address] PCP - General Internal Medicine 11/21/23 documented as of this encounter
--- OUTSIDE RECORDS SUMMARY | 2024-09-03 23:31 | XMS_ITS | Encounter Summary ---
Author Organization [facility] Address [address] [place] [address] Care Team Providers Care Pearl Peller Name Role Phone Guy Hinkle MD Primary Care Provider [phone] [facility], Pcp Primary Care Provider Deep Rose MD Primary Care Provider Irene Uzair Guardado MD Primary Care Provider Unavail Helen Mcginnis MD Primary Care Provider Deb Cartagena MD Primary Care Provider [phone] Encounter Details Date Type Department Care Team Description 06/16/2001 Telephone Gastroenterology - [address] [address] Jd Maguire MD Social History Tobacco Use Types Packs/Day Years Used Date Smoking Tobacco: Never Assessed Sex Assigned at Date Recorded Not on file documented as of this encounter Plan of Treatment Not on file documented as of this encounter Visit Diagnoses Not on filedocumented in this encounter Care Teams Pearl Peller Relationship Specialty Start Date End Date Guy Hinkle MD [address] [place] [address] PCP - General 05/05/1991 11/19/11 [facility], Pcp [address] [place] [phone] PCP - General Internal Medicine 11/20/11 12/09/11 Deep Ross MD [address] [place] [address] PCP - General Internal Medicine 12/10/11 05/04/14 Uzair Guerrero MD [address] [place] [address] PCP - General Internal Medicine 07/04/14 02/08/15 Helen Joaquin MD [address] [place] [address] PCP - General Internal Medicine 02/09/15 11/20/23 Deb Bell MD [address] [place] [address] [phone] PCP - General Internal Medicine 11/21/23 documented as of this encounter
--- OUTSIDE RECORDS SUMMARY | 2024-09-03 23:31 | XMS_ITS | Encounter Summary ---
Author Organization [facility] Address [address] [place] [address] Care Team Providers Care Swimming Instructor Name Role Phone Guy Hinkle MD Primary Care Provider [phone] [facility], Pcp Primary Care Provider Deep Rose MD Primary Care Provider Uzair Rahman MD Primary Care Provider Unavail Helen Mcginnis MD Primary Care Provider Deb Cartagena MD Primary Care Provider [phone] Encounter Details Date Type Department Care Team Description 10/09/2005 Hospital Medical Records [address] [place] [address] Ara Crocker MD [address] [facility] [address] [place] [address] Social History Tobacco Use Types Packs/Day Years Used Date Smoking Tobacco: Former Cigarettes 0.5 42 Smokeless Tobacco: Never Alcohol Use Standard Drinks/Week Comments Yes 0 (1 standard drink = 0.6 oz pur e alcohol) 1-2 BEERS/YEAR Sex Assigned at Date Recorded Not on file documented as of this encounter Plan of Treatment Not on file documented as of this encounter Visit Diagnoses Not on filedocumented in this encounter Care Teams Swimming Instructor Relationship Specialty Start Date End Date Guy Hinkle MD [address] [place] [id number] PCP - General 05/05/1991 11/19/11 [facility], Pcp [address] [place] [address] PCP - General Internal Medicine 11/20/11 12/09/11 Deep Ross MD [address] [place] [address] PCP - General Internal Medicine 12/10/11 05/04/14 Uzair Guerrero MD [address] [place] [address] PCP - General Internal Medicine 07/04/14 02/08/15 Helen Joaquin MD [address] [place] [address] PCP - General Internal Medicine 02/09/15 11/20/23 Deb Bell MD [address] [place] [address] PCP - General Internal Medicine 11/21/23 documented as of this encounter
--- OUTSIDE RECORDS SUMMARY | 2024-09-03 23:31 | XMS_ITS | Clinical Summary ---
Author Organization [facility] Address [address] [place] [address] Care Team Providers Care Spine Specialist Name Role Phone Deb Bell MD Primary Care Provider [phone] Medications Medication Sig Dispensed Refills Start Date End Date Status Lidocaine & Menthol 5 & 6 % Kit Apply topically. 0 Active Miconazole Nitrate 2 % Aerosol Apply 1 Applicator topically daily. 100 g 3 02/03/2024 Active tolnaftate (Lotrimin AF) 1 % powder Apply 1 Applicator topically 2 times daily for 30 days. Both feet 45 g 3 02/03/2024 Active losartan (COZAAR) 25 MG tablet Take 2 Tablets by mouth daily. 180 Tablet 0 02/24/2024 Active Active Problems Problem Noted Date Calculus of gallbladder without cholecys titis without obstruction 12/12/2023 Primary hypertension 12/12/2023 Fatty liver 12/12/2023 Biliary colic 12/12/2023 Smoking 10/21/2014 Lymphedema 11/26/2007 Trigger finger 11/16/2007 Varicose veins of lower extremities with inflammation 09/28/2005 Morbid obesity 09/23/2005 Resolved Problems Problem Noted Date Resolved Date Varicose veins of lower extremities with inflamm ation 09/23/2005 09/23/2005 Immunizations Name Administration Dates Next Due COVID-19 (Pfizer) 09/09/2020,08/19/2020 Tdap 10/12/2008 Family History Relation Name Status Comments Brother Alive Father Alive htn Mother Alive valvular heart diseace/pacemaker Social History Tobacco Use Types Packs/Day Years Used Date Smoking Tobacco: Former Cigarettes 0.5 42 Smokeless Tobacco: Never Tobacco Cessation:Counseling Given: Not Answered Alcohol Use Standard Drinks/Week Comments Yes 0 (1 standard drink = 0.6 oz pur e alcohol) 1-2 BEERS/YEAR Sex Assigned at Date Recorded Not on file Last Filed Vital Signs Vital Sign Reading Time Taken Comments Blood Pressure 146/74 02/24/2024 4:19 PM EDT Pulse 66 02/24/2024 4:19 PM EDT Temperature 36.6 ??C (97.8 ??F) 02/24/2024 4:19 PM ED T Respiratory Rate 18 02/24/2024 4:19 PM EDT Oxygen Saturation 96% 12/12/2023 8:53 AM EDT Inhaled Oxygen Concentration - - Weight 156.9 kg (346 lb) 02/24/2024 4:19 PM EDT Height 182.9 cm (6') 02/24/2024 4:19 PM EDT Body Mass Index 46.93 02/24/2024 4:19 PM EDT Plan of Treatment Health Maintenance Due Date Last Done Comments DTAP/TDAP/TD (2 - Td or Tdap) 10/12/2018 10/12/2008 COLON CANCER SCREENING 01/16/2022 2, 01/17/2012, 09/04/2001, Additional history exists PNEUMOCOCCAL VACCINE (1 - PCV) 2023 Covid-19 Vaccine (3 - 2022- season) 2024 09/09/2020, 08/19/2020 BMI CHECK/ADVISE 05/05/2024 02/24/2024, 03/2024, 01/13/2024, Additional history exists DEPRESSION SCREEN 12/11/2024 12/12/2023 (Completed) FALL RISK ASSESSMENT 12/11/2024 12/12/2023 (Complete d) SHINGLES VACCINE (1 of 2) 12/11/2024 Po stponed from 2008 (Other Circumstances) INFLUENZA (Season Ended) 2025 CHOLESTEROL SCREENING 12/22/2028 12/23/2023 , 01/13/2013, 12/05/2007, Additional history exists HEPATITIS C SCREENING Completed 12/23/2023 Care Teams Spine Specialist Relationship Specialty Start Date End Date Deb Bell MD [address] [place] [address] PCP - General Internal Medicine 11/21/23
--- OUTSIDE RECORDS SUMMARY | 2024-09-03 23:31 | XMS_ITS | Encounter Summary ---
Author Organization [facility] Address [id number] [place] [phone] Care Team Providers Care Pit Slagman Name Role Phone Deb Bell MD Primary Care Provider [phone] Reason for Visit * Reason Comments Follow-up Encounter Details Date Type Department Care Team (Late st Contact Info) Description 09/02/2024 2:30 PM EDT Office Visit Vascular Surgery - [place] [address] [place] [phone] Erma Miller PA [address] [place] [address] Lymphedema (Primary Dx); Varicose veins of leg with swelling, bilateral Social History Tobacco Use Types Packs/Day Years Used Date Smoking Tobacco: Former Cigarettes 0.5 4.3 S tarted: 2020 Smokeless Tobacco: Never Alcohol Use Standard Drinks/Week Comments Not Currently [...] Orientation Straight 08/13/2024 9: 27 AM EDT documented as of this encounter Last Filed Vital Signs Vital Sign Reading Time Taken Comments Blood Pressure 125/82 09/02/2024 2:17 PM EDT Pulse 82 09/02/2024 2:17 PM EDT Temperature - - Respiratory Rate - - Oxygen Saturation - - Inhaled Oxygen Concentration - - Weight 150 kg (331 lb) 09/02/2024 2:17 PM EDT Height 182.9 cm (6') 09/02/2024 2:17 PM EDT Body Mass Index 44.89 09/02/2024 2:17 PM EDT documented in this encounter Progress Notes * Maisha CalderaWERO - 09/02/2024 2:30 PM EDT Lower Extremity Venous Duplex for Venous Insufficiency - 06/17/2024 Right: 1. The right lower extremity veins are compressible and there is no evidence of DVT in the right lower extremity venous system. 2. Previous history of venous procedure on both legs, most likely ablation of the GSV done partially, could not visualize GSV from mid thigh to right knee level. The GSV has clinically significant reflux of 3.1 seconds at the right upper calf. 3. The SSV could not be visualized. 4. There is refluxing varcose vein branch from right GSV noted. The proximal thigh branch has clinically significant reflux of >2.7 seconds, mid thigh branch which is very tortuous has clinically significant reflux of > 3.23 seconds, another mid thigh branch has clinically significant reflux of > 3.06 seconds, right upper calf branch has clinically significant reflux of > 3.29 secondsand right upper calf medial branch has clinically significant reflux of > 3.28 seconds. Left: 1. The left lower extremity veins are compressible and there is no evidence of DVT in the left lower extremity venous system. 2. The GSV is only partially visible, most likely previous ablation of the GSV from the mid thigh to knee level. The GSV has clinically significant reflux of 2.5 [...] 3.1 seconds > at the upper calf. Result History Order Result History Report Procedure Details A rose scale, color and doppler analysis ultrasound was performed. During the study longitudinal and transverse views were obtained. Pulsed wave doppler was performed. Study was technically difficultdue to: body habitus. Lower Venous Extremity Findings Right Lower Venous The common femoral, femoral, [...] performed with the patient in reverse trendelenburg. Right Lower Venous Measurements Vein Diam Reflux Time GSV Junction 0.76 cm GSV Thigh Prox 0.25 cm GSV Below Knee Prox 0.4 cm 3,117 ms GSV Below Knee Dist 0.39 cm Pop 2,811 ms Left Lower Venous Measurements Vein Diam Reflux Time GSV Junction 0.95 cm 2,578 ms GSV Thigh Prox 0.35 cm GSV Below Knee Prox 0.38 cm GSV Below Knee Dist 0.37 cm * MARY ANN Fatima - 09/02/2024 2:30 PM EDT PATIENT: [place] ENCOUNTER: 09/02/2024 EMRN: [id number] : 1960 PCP: Deb Bell MD CHIEF COMPLAINT: Follow-up HPI: This 64 y.o. male with history of lymphedema, morbid obesity, HTN, varicose veins presents for follow up of lymphedema, chronic venous insufficiency. Patient reports he was diagnosed with lymphedema in 1994. He reports varicose veins present on calves and thighs but denies any associated pain. Bothlegs are equal. He reports constant swelling of his legs. He has been wearing some type of compression for 30 years. He currently uses compression wraps. He denies any history of venous ulcers. No history of DVT. Denies claudication, rest pain in toes, ulcers or gangrene. He previously had venous injections 3-4 years ago at [facility] but cannot provide further details. He also mentions that they may have attempted an ablation previously but the procedure was unable to be completed. He quit smoking 3 years ago. He follows with Dr. Vasquez for podiatry. Since patient's last visit, he reports no change in his symptoms. He continues to use compression wraps daily. He does not want to have his legs examined today and declined removal of compression wraps, socks and shoes. He denies development of venous ulcers. He had venous reflux studies performed,see findings below. 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 EYE SURGERY OTHER SURGICAL HISTORY PROCEDURE: NC STRABISMUS PREVIOUS EYE X INVOLVE EO [facility] MEDICATIONS: Outpatient Medications Marked as Taking for the 09/02/24 encounter (Office Visit) with MARY ANN Fatima Medication Sig Dispense Refill losartan (COZAAR) 50 mg tablet Take 1 tablet (50 mg total) by mouth 1 (one) time each day. 90 tablet 1 ALLERGIES: No Known Allergies SOCIAL HISTORY: Social History Tobacco Use Smoking status: Former Current packs/day: 0.50 Average packs/day: 0.5 packs/day for 4.3 years (2.2 ttl pk-yrs) Types: Cigarettes Start date: 2020 Smokeless tobacco: Never Substance Use Topics Alcohol use: Not Currently Drug use: No FAMILY HISTORY: No family history on file. ROS: GENERAL: No malaise, significant weight loss or fever NECK: No lumps, goiter, pain or significant neck swelling RESPIRATORY: No cough, wheezing or shortness of breath CARDIAC: No chest pain or palpitations GI: No abdominal discomfort MUSCULOSKELETAL: SEE HPI SKIN: No lesions, rash or itching NEURO: No persistent headache, syncope, seizures, weakness or numbness VASCULAR: SEE HPI PHYSICAL EXAM: Vitals: 09/02/24 1417 BP: 125/82 BP Location: Left arm Patient Position: Sitting Pulse: 82 Weight: 150 kg (331 lb) Height: 1.829 m (72 ) General: Alert and oriented x 3, no acute distress, well-nourished HEENT: Normocephalic atraumatic Neck: No JVD Chest: Respiratory effort normal Cardiac: Regular rate rhythm Abdomen: Soft, nontender, nondistended, no widened aortic pulse Extremities: -Right upper extremity: 2+ radial artery pulses palpable. -Left upper extremity: 2+ radial artery pulses palpable. -Right lower extremity: Unable to examine as patient declined removal of compression wraps, soaks and shoes. -Left lower extremity: Unable to examine as patient declined removal of compression wraps, soaks and shoes. Integumentary: No wounds Neuro: Grossly intact DIAGNOSTIC TESTING: Lower Extremity Venous Duplex for Venous Insufficiency - 06/17/2024 Right: 1. The right lower extremity veins are compressible and there is no evidence of DVT in the right lower extremity venous system. 2. Previous history of venous procedure on both legs, most likely ablation of the GSV done partially, could not visualize GSV from mid thigh to right knee level. The GSV has clinically significant reflux of 3.1 seconds at the right upper calf. 3. The SSV could not be visualized. 4. There is refluxing varcose vein branch from right GSV noted. The proximal thigh branch has clinically significant reflux of >2.7 seconds, mid thigh branch which is very tortuous has clinically significant reflux of > 3.23 seconds, another mid thigh branch has clinically significant reflux of > 3.06 seconds, right upper calf branch has clinically significant reflux of > 3.29 secondsand right upper calf medial branch has clinically significant reflux of > 3.28 seconds. Left: 1. The left lower extremity veins are compressible and there is no evidence of DVT in the left lower extremity venous system. 2. The GSV is only partially visible, most likely previous ablation of the GSV from the mid thigh to knee level. The GSV has clinically significant reflux of 2.5 [...] 3.1 seconds > at the upper calf. ASSESSMENT: 1. Lymphedema 2. Varicose veins of leg with swelling, bilateral PLAN: 64 y.o. male with history of lymphedema, bilateral varicose veins. Patient has been compliant with compression stockings for ~30 years. He is currently utilizing juxtalite compression wraps. We reviewed venous reflux study from 06/17/24 which revealed previously noted bilateral GSV procedure at the level of thigh to knee. There is clinically significant reflux of GSV at right upper calf and left saphenofemoral junction. Multiple refluxing varicose vein branches are noted. Patient declined examination of his legs today. Feel patient would be great candidate for intermittent pneumatic compression therapy. We discussed in the office today and he is interested. We will prescribe today. Plan for patient to follow up in 6 months to re-evaluate symptoms at that time. He will continue additional conservative management including leg elevation, daily exercise, weight loss, etc. He will contact the office with any questions or concerns. We discussed the natural pathophysiology of venous disease. I spent 31 minutes in an encounter withthis patient, including time spent with patient, chart review, reviewing diagnostic studies, and documentation. DIAGNOSIS ASSESSMENT [x] Lymphedema, not elsewhere classified [I89.0] Secondary to: [x] Venous Insufficiency [x] Obesity [] Surgical History [] Cancer Treatents [] Traumatic Injury LOCATION OF LYMPHEDEMA [x] Right Leg [x] Left Leg [] Pelvis/Genitals/Hips/Buttocks [x] Abdomen/Trunk [] Other: Date of onset, or duration: 11/06/2007 SEVERITY Symptoms and observations from physical exam Stage of Lymphedema: [x]Stage II [] Stage III []Other: [x] Hyperkeratosis [x] Hyperpigmentation [] Lymphorrhea (weeping) [] Papillomatosis (warts, nodules, papules) [] Elephantiasis [] Fibrosis [x] Pitting Edema [] Recurrent episode(s) of infection/cellulitis [x] Pain [] Venous leg ulcers and/or wounds [] Functional impairments to include limited range of motion or impaired mobility [] Other, explain: CONSERVATIVE TREATMENT (CT) Start Date: 09/15/15 Patient adhered to: Regular use of compression bandage system or compression garment(s)? [x] YES, compression garments (20-30mmHg) [] YES, compression bandage system Type: [] Multi-layer short stretch [] Velcro compression wrap(s) [] One-time use pre-packaged bandaging (i.e., Profore, Unna boot, Coban) [] Other: [] NO, explain: Regular exercise? [x] YES []NO If NO, explain: Limb elevation? [x] YES [] NO If NO, explain: At least 30 minutes daily of MLD or self-MLD? [x] YES [] NO Diet modifications? [x] YES [] NO Ongoing dietary concerns? [] YES [x] NO If YES, explain: Despite adhering to CT is the patient experiencing persistent symptoms? [x] YES [] NO ASSESSMENT FOR PNEUMATIC COMPRESSION DEVICE (PCD) Patient is recommended an: [] E0651 basic PCD [x] E0652 advanced PCD The following reasons demonstrate why a E0651 basic PCD is deemed not clinically appropriate to manage the patient's lymphedema (check all that apply): [x] Lymphedema is extending beyond the treatment area of an E0651 treatment sleeve []E0651 basic PCD exacerbated preexisting upper thigh, trunk/abdominal lymphedema [] Patient was unable to tolerate static pressure applied during the trial of the E0651 basic PCD due to a pre-existing condition or a condition being exacerbated: []Pain []Scarring []Contractures []Compromised skin integrity []Open ulcers/wounds Additional assessments or clinical observations: MEASUREMENTS: Unable to obtain in office on 09/02/24 as patient declined removal of compression wraps, socks and shoes. Choose at least two consecutive anatomical locations. Right Leg Measurements after completing CT Left Leg Measurements after completing CT Ankle cm Ankle cm Calf cm Calf cm Knee cm Knee cm Thigh cm Thigh cm Suprapubic (Hip) * cm Suprapubic (Hip)* cm Umbilicus (Waist)* cm Umbilicus (Waist)* cm *Include measurements if patient presents with lymphedema proximally into the genitals or trunk. Other history and clinical information: documented in this encounter Plan of Treatment Upcoming Encounters Date Type Department Care Team (Late st Contact Info) Description 09/06/2024 3:15 PM EDT Office Visit General Surgery [address] [place] [address] Andrzej Booker, DO 175 [facility] [address] [place] [address] 09/07/2024 11:00 AM EDT Office Visit Adult [facility] [address] [place] [address] Deb Bell MD [address] [place] [address] 09/22/2024 1:15 PM EDT Office Visit Orthopedic Surgery [facility] [address] [facility] [address] [place] [phone] Milad Vasquez DPM [address] [address] 03/11/2025 3:00 PM EST Office Visit Vascular Surgery [facility] 300 [facility] [address] [place] [address] Erma Miller PA 300 [facility] [address] [place] [address] documented as of this encounter Visit Diagnoses Diagnosis Lymphedema- Primary Other noninfectious lymphedema Varicose veins of leg with swelling, bilateral documented in this encounter Care Teams Pit Slagman Relationship Specialty Start Date End Date Deb Bell MD [address] [place] [address] PCP - General 11/21/23 documented as of this encounter
[2024-09-04 00:02] VITALS: BP 116/68; BP 128/70; PULSE 70; PULSE 73
[2024-09-04 00:04] VITALS: BP 118/62; PULSE 97
[2024-09-04 00:14] VITALS: BP 128/71; PULSE 62; RESP 16; TEMP 36.4; O2SAT 98
[2024-09-04 00:31] VITALS: BP 128/71; PULSE 62; RESP 16; TEMP 36.4; O2SAT 98
== END 2024-09-04 00:31 | disposition home or self-care (01) ==
PROVIDERS: Nurse Practitioner Family; Emergency Provider Internal Medicine; PCP Internal Medicine
DX: R51.9 Headache, unspecified (principal); I10 Essential (primary) hypertension; R42 Dizziness and giddiness; Z03.818 Encounter for observation for suspected exposure to other biological agents ruled out
CPT/HCPCS: 0241U; 70450; 80053; 85025; 99284

== ENCOUNTER → 2024-09-03 19:29 | Outpatient (BNV) | payer MEDICARE, MEDICAID, SELFPAY | PROVIDERS: PCP Internal Medicine; Visit Provider Radiology Diagnostic Radiology | DX: R51.9 Headache, unspecified (principal) | CPT/HCPCS: 70450 ==

== ENCOUNTER 2025-03-22 11:35 | Outpatient (AMB) | payer MEDICARE, SELFPAY ==
--- NOTE | 2025-03-22 11:39 | A.PHYSOV ---
Vital Signs 03/22/25 11:40 Height 6 ft Weight 311 lb BMI 42.2 Intake Visit Reasons: NPV Viviana Ref- spondylosis of lumbar joint Intake Note: Patient is a 64 year old male in office as new patient for low back pain. Allergies No Known Allergies Allergy (Verified 03/22/25 11:41) HPI Comments Details: History of Present Illness The patient is a 64-year-old male presenting with chronic low back pain and hip arthritis. The chronic low back pain began several years ago and has progressively worsened over time. The pain is exacerbated by prolonged standing and sitting, and it is relieved when the patient is in a reclined position. The patient reports that the pain does not radiate to the legs and is primarily located in the lower back. The hip arthritis was diagnosed following imaging studies that revealed degenerative changes. The patient experiences hip pain when standing for extended periods and has difficulty with mobility. Physical therapy was attempted but did not provide significant relief. He completed 6 weeks of physical therapy focusing on his lumbar spine and right hip without relief his symptoms. He finds that his symptoms limit his ability to perform his activities of daily living. X-ray lumbar spine and hips reported below. I reviewed the referring provider's no prior to consultation Pain Description - Onset: Several years ago, progressively worsening - Quality: Aching pain - Location: Lower back, no radiation to legs - Exacerbating factors: Prolonged standing and sitting - Relieving factors: Reclined position - Interference: Difficulty with prolonged standing and mobility [facility] Medical History (Updated 03/22/25 @ 12:41 by MARY ANN Walsh) No known health problems Surgical History History of cholecystectomy Social History Household Members: Spouse Alcohol intake: current Alcohol intake frequency: does not drink Alcohol type: beer and wine Patient Tobacco Use Status: Former Tobacco user Review of Systems Narrative Review of Systems - Musculoskeletal: Reports chronic low back pain, hip pain; denies radiation to legs - Neurological: Denies numbness or tingling in legs - Gastrointestinal: Reports history of gallstones, denies current abdominal pain Physical Exam Exam Exam: Physical Exam Lumbar Spine: Examination of his lumbar spine, there is no visible swelling or deformity. He is tender to the lower lumbar facets. He is otherwise nontender. Full range of motion of his lumbar spine. He does have an increase in Facet loading. Special Tests: Lhermittes sign was negative Heel Toe walk is normal Left straight leg raise: Negative Right straight leg raise: Negative Special tests Angelique test is negative Ganslen's test is negative SI Joint compression test negative Mana test negative Piriformis stretch is negative Lower Extremities: Limited range of motion of both hips in external rotation and abduction. There is some discomfort reproducible with motion. Neuro: Sensation: Intact to lower extremities bilaterally Strength L2 (Psoas): 5/5 on the left and 5/5 on the right. L3 (Quads): 5/5 on the left and 5/5 on the right. L4 (Ant tibialis): 5/5 on the left and 5/5 on the right. L5 (EHL) 5/5 on the left and 5/5 on the right. S1 (Gastroc): 5/5 on the left and 5/5 on the right. DTR L4: (Patellar) Left 0 Right 0 S1: (Achilles) Left 0 Right 0 Babinski Downgoing No pathologic clonus. No involuntary movement. Vital Signs: BMI result Body Mass Index 42.2 Assessment & Plan Assessment & Plan (1) Lumbar radiculopathy: Code(s): M54.16 - Radiculopathy, lumbar region Category: Medical (2) Osteoarthritis of right hip: Code(s): M16.11 - Unilateral primary osteoarthritis, right hip Category: Medical Qualifiers: Osteoarthritis type: primary Qualified Code(s): M16.11 - Unilateral primary osteoarthritis, right hip (3) Osteoarthritis of right knee: Code(s): M17.11 - Unilateral primary osteoarthritis, right knee Category: Medical Qualifiers: Osteoarthritis type: primary Qualified Code(s): M17.11 - Unilateral primary osteoarthritis, right knee Plan Pain Management - Affect: Pain impacts mobility and daily activities - Analgesia: No current pain medication, pain level reported as 4-5/10 - Adverse Effects: None reported - Activities of Daily Living: Difficulty standing for long periods, uses recliner for sleep - Aberrant Drug Related Behaviors: None reported Plan Patient was informed and verbally consented to the use of an ambient scribe for clinic note documentation during this visit. 1. Chronic Low Back Pain The plan for managing chronic low back pain includes anti-inflammatory medications as well as 6 weeks of physical therapy. At this point he has failed conservative treatment. I recommend MRI of his lumbar spine as we are considering epidural injection versus surgery. Follow-up post MRI. 2. Hip Arthritis For hip arthritis, the patient is advised to consider a cortisone injection to manage pain and inflammation, with the understanding that it may provide temporary relief for three to six months. Patient will hold off on injection at this time. He will continue his medications as prescribed. We discussed the benefits of proper nutrition and exercise to maintain a healthy body weight to improve longevity and function. We also discussed the benefits of proper lifting techniques, core strengthening and proper posture. Thank you for allowing me to participate in the care of your patient. Orders: Orders MR lumbar spine wo con Today M51.16 - Intervertebral disc disorders with radiculopathy, lumbar region Medications: New lorazepam (Ativan) 1 mg PO DAILY PRN 2 tabs 0RF anxiety MDD Take 1 tab Prior to MRI F40.240 - Claustrophobia Coding Level of Care Code New Pt Level 5 (58537) Diagnoses Lumbar radiculopathy M54.16 Primary osteoarthritis of right hip M16.11 Osteoarthritis type: primary Primary osteoarthritis of right knee M17.11 Osteoarthritis type: primary Time Spent (min) 50 Comment 50 minutes reviewing the medical record and imaging, seeing the patient and documenting.
[2025-03-22 11:40] VITALS: BMI 42.2
== END 2025-03-22 12:38 | disposition home or self-care (01) ==
LOC: HO.HPHYS 11:35
PROVIDERS: PCP Internal Medicine; Visit Provider Physician Assistant
DX: M54.16 Radiculopathy, lumbar region (principal); M16.11 Unilateral primary osteoarthritis, right hip; M17.11 Unilateral primary osteoarthritis, right knee
CPT/HCPCS: 99204

== ENCOUNTER → 2025-03-22 11:35 | Outpatient (BNVA) | payer MEDICARE, SELFPAY | PROVIDERS: PCP Internal Medicine; Visit Provider Physician Assistant | DX: M17.11 Unilateral primary osteoarthritis, right knee (principal); M16.11 Unilateral primary osteoarthritis, right hip; M54.16 Radiculopathy, lumbar region | CPT/HCPCS: 99202 ==

== ENCOUNTER 2025-04-14 10:00 | Outpatient (AMB) | payer MEDICARE, SELFPAY ==
[2025-04-14 10:11] VITALS: BMI 42.0
--- NOTE | 2025-04-14 10:11 | A.OFFVIS_ITS ---
Vital Signs 04/14/25 10:11 Height 6 ft Weight 310 lb BMI 42.0 Intake Visit Reasons: MRI followup Intake Note: Patient is a 64 year old male in office today for a follow up visit to discuss mri results no heat or ice no pain medication are taken Allergies No Known Allergies Allergy (Verified 03/22/25 11:41) HPI Comments Details: History of Present Illness The patient is a 65 year old male presenting for discussion of MRI results and management of chronic low back pain. He reports persistent low back pain, described as the same, and experiences occasional pain or soreness in his thighs, particularly with standing and walking. He has a pain level today of 7/10 and has failed conservative treatment. The patient's back condition is attributed to age-related wear and tear, with potential contributing factors including genetics, prior injuries, and weight gain. He takes blood pressure medication but is not on any blood thinners. An abdominal MRI has been ordered by another provider to evaluate side pain. Pain Description - Location: Low back. - Radiation: Occasional pain or soreness into the thighs. - Exacerbating factors: Standing or walking for a period of time. - Relieving factors: Feels much better when leaning forward, such as on a shop ping cart. Results - MRI Lumbar Spine: - Lower spine arthritis. - Degenerative disc disease. - At L3-L4, moderate to severe spinal canal stenosis with spinal cord compression and severe bilateral foraminal stenosis. - At another level, moderate to severe foraminal stenosis. - At a lower level, severe right and left foraminal stenosis. - Incidental finding of a benign-appearing, fluid-filled cyst in the left kidney. [facility] Medical History (Updated 04/14/25 @ 12:32 by MARY ANN Walsh) No known health problems Surgical History History of cholecystectomy Social History Household Members: Spouse Alcohol intake: current Alcohol intake frequency: does not drink Alcohol type: beer and wine Patient Tobacco Use Status: Former Tobacco user Review of Systems Narrative Review of Systems - Musculoskeletal: Reports chronic low back pain and occasional pain or soreness in the thighs. - Genitourinary/Abdominal: Reports pain in his side, for which an abdominal MRI has been ordered by another provider. - All other systems reviewed and are negative. Physical Exam Exam Exam: Physical Exam Lumbar Spine: Examination of his lumbar spine, there is no visible swelling or deformity. He is tender to lower lumbar facets. He is otherwise nontender. Full range of motion of his lumbar spine. Special Tests: Lhermittes sign was negative Heel Toe walk is normal Left straight leg raise: Negative Right straight leg raise: Negative Special tests Angelique test is negative Ganslen's test is negative SI Joint compression test negative Mana test negative Piriformis stretch is negative Lower Extremities: Limited range of motion of both hips in external rotation and abduction. Neuro: Sensation: Intact to lower extremities bilaterally Strength L2 (Psoas): 5/5 on the left and 5/5 on the right. L3 (Quads): 5/5 on the left and 5/5 on the right. L4 (Ant tibialis): 5/5 on the left and 5/5 on the right. L5 (EHL) 5/5 on the left and 5/5 on the right. S1 (Gastroc): 5/5 on the left and 5/5 on the right. DTR L4: (Patellar) Left 0 Right 0 S1: (Achilles) Left 0 Right 0 Babinski Downgoing No pathologic clonus. No involuntary movement. Vital Signs: BMI result Body Mass Index 42.0 Results Reviewed Results Reviewed: MRI lumbar spine 04/04/2025 impression: Multilevel lumbar spondylosis as above, most prominent at L2-3 and L3-4 and L4- 5. T2 hyperintense lesion of the left kidney statistically represents a cyst. Epidural lipomatosis. Assessment & Plan Assessment & Plan (1) Lumbar radiculopathy: Code(s): M54.16 - Radiculopathy, lumbar region Category: Medical (2) Spinal stenosis: Code(s): M48.00 - Spinal stenosis, site unspecified Category: Medical Qualifiers: Neurogenic claudication status: with neurogenic claudication Spinal region: lumbar Qualified Code(s): M48.062 - Spinal stenosis, lumbar region with neurogenic claudication Plan Pain Management - Analgesia: No current pain medications were discussed. The goal of the recommended injection is to achieve at least a 50% reduction in pain. - Activities of Daily Living: Pain is present with standing and walking. - He finds he can get more distance when grocery shopping by leaning on a cart. - Aberrant Drug Related Behaviors: No aberrant drug-related behaviors were noted or discussed. Plan Patient was informed and verbally consented to the use of an ambient scribe for clinic note documentation during this visit. 1. Lumbar Spinal Stenosis With Neurogenic Claudication The patient's MRI reveals multilevel degenerative changes, including moderate to severe spinal canal stenosis at L3-L4 and severe foraminal stenosis at multiple levels, which are causing compression of his spinal cord and nerves. These findings are consistent with his symptoms of back and leg pain, which are exacerbated by walking and relieved by leaning forward. Treatment options including physical therapy, director of home care hospice, and surgery were discussed. It was explained that while surgery is the only curative option, it is not without risks and is not recommended at this time. Patient may consider L5-S1 NETO, he will contact our office if you would like to proceed. The patient has elected to proceed with a lumbar epidural steroid injection to manage his symptoms. The procedure will be performed under X-ray guidance by Dr. Mcduffie, with the injection administered in the center of the back (interlaminar approach). An order will be placed, and authorization will be sought from his insurance. A follow-up is scheduled for three weeks post-procedure to evaluate its effectiveness. 2. Renal Cyst, Left An incidental finding on the lumbar MRI was a cyst on the left kidney. It was explained that the cyst appears benign and fluid-filled, not cancerous, and is not expected to affect kidney function. The patient was advised that no immediate action is likely needed, but he should discuss the finding with his [facility] care physician, Dr. Bell, to determine if any follow-up, such as a renal ultrasound, is warranted. The MRI report has been sent to his PCP. Discussion Notes I reviewed the patient's lumbar spine MRI results with him, explaining that he has arthritis causing [id number] spinal canal stenosis and severe foraminal stenosis at multiple levels. I educated him that this compression of the spinal cord and nerves is the cause of his back and leg symptoms, and that the condition is degenerative and progressive. We discussed treatment options, including conservative measures, surgery, and injections. I recommended a lumbar epidural steroid injection, explaining it is not a cure but could provide pain relief for an average of 3-6 months and is repeatable if effective. I reviewed the risks, including a small chance of infection, bleeding, or nerve damage, and explained the procedure would be done under x-ray guidance. I also informed him of an incidental finding of a left renal cyst, which appears benign, and recommended he follow up with his PCP. The patient understood the risks and benefits and consented to proceed with ordering the injection. We will seek insurance authorization and schedule him for the procedure with Dr. Mcduffie, with a 3-week follow-up with me. Patient Instructions - Your back pain is caused by arthritis, which is pinching the nerves in your lower back. This is often called spinal stenosis. - You may find some relief from your pain by leaning forward, for example, by leaning on a shopping cart when at the store. - We have ordered a cortisone shot (epidural injection) for your back. This shot is meant to reduce inflammation and pain. It is not a cure, but it can provide relief for 3 to 6 months. - Our office will get approval from your insurance company and will then call you to schedule the injection. This may take a few weeks. - You will have a follow-up appointment with this office three weeks after your injection to check on your progress. - Your back MRI also showed a cyst on your left kidney. This appears to be harmless. Please mention this finding to your main doctor (PCP) at your next appointment. Coding Level of Care Code Tele Est Pt Level 3 (87349) Diagnoses Lumbar radiculopathy M54.16 Spinal stenosis of lumbar region with neurogenic claudication M48.062 Neurogenic claudication status: with neurogenic claudication Spinal region: lumbar
== END 2025-04-14 10:43 | disposition home or self-care (01) ==
LOC: HO.HPHYS 10:00
PROVIDERS: PCP Internal Medicine; Visit Provider Physician Assistant
DX: M54.16 Radiculopathy, lumbar region (principal); M48.062 Spinal stenosis, lumbar region with neurogenic claudication
CPT/HCPCS: 99213

== ENCOUNTER → 2025-04-14 10:00 | Outpatient (BNVA) | payer MEDICARE, SELFPAY | PROVIDERS: PCP Internal Medicine; Visit Provider Physician Assistant | DX: M48.062 Spinal stenosis, lumbar region with neurogenic claudication (principal); M54.16 Radiculopathy, lumbar region; N28.1 Cyst of kidney, acquired | CPT/HCPCS: 99212 ==